=== PATIENT | female | born 1980 | race Caucasian/White ===

== ENCOUNTER 2020-02-06 17:11 | Emergency (ER) | payer OTHER, SELFPAY ==
--- NOTE | ~2020-02-06 | CT_ITS ---
EXAMINATION: CT abdomen pelvis w con INDICATION: Lower abdominal and pelvic pain TECHNIQUE: Computed tomographic images of the abdomen and pelvis were obtained after the administrati on of 100 cc of Omnipaque 350 intravenous contrast. The dose-length product (DLP) was 511.11 mGy-cm. Automated exposure control and iterative reconstruction technique were employed. COMPARISON: 07/03/2013 FINDINGS: The lung bases are clear. The heart size is normal. There is a small sliding hiatal hernia. The gallbladder is surgically absent. The liver, spleen, pancreas, and adrenal glands are normal. Th e left kidney is unremarkable. Nonobstructing stones of the right kidney measure up to 3 mm. No stone s are present in the ureters or bladder. There is no hydronephrosis or hydroureter. A displaced left tubal ligation clip is again noted. No pathologically enlarged abdominal or pelvic lymph nodes are id entified. There is no free intraperitoneal gas or evidence of bowel obstruction. The appendix is norm al. A small volume of free fluid in the pelvis is likely physiologic. A moderate volume of colonic st ool is present. There is mild lumbar spondylosis. IMPRESSION: 1. No CT correlate for the patient's symptoms. 2. Nonobstructing right nephrolithiasis. 3. Displaced left tubal ligation clip. Reviewed, dictated and finalized at location A.
[2020-02-06 17:20] VITALS: BP 124/77; PULSE 96; RESP 16; TEMP 36.6; O2SAT 100
[2020-02-06 17:59] LABS: Add Urine Microscopic? YES; Appearance Urine Clear (Clear); Bilirubin Urine Negative (Negative); Blood Urine 1+ (Negative); Color Urine Straw (Yellow); Glucose Urine UA Negative (Negative); Ketones Urine Negative (Negative); Leukocyte Esterase Ur Trace LEU/UL (Negative); Mucus Urine Rare /lpf; Nitrate Urine Negative (Negative); Protein Urine Negative (Negative); RBC Urine 0-2 /hpf (0-2); Squamous Epithelial Cell Urine Many /hpf (Few); Urobilinogen Urine Negative mg/dL (<2.0); WBC Urine 0-3 /hpf
[2020-02-06 18:03] LABS: Specific Grav Ur 1.003 (1.001-1.035)
--- NOTE | 2020-02-06 18:05 | ED.ABDPAIN ---
HPI - Abdominal Pain General Chief Complaint: Urogenital-Female Stated Complaint: pelvic pain Time Seen by Provider: 02/06/20 17:51 Source: patient and family Mode of arrival: ambulatory Limitations: no limitations History of Present Illness HPI narrative: 39 years old white female presents with lower abdominal pressure feeling and urine frequency and hurts when she pees started 2-hour prior to arrival to the emergency room. Patient denies any fever, chills, nausea, vomiting, blood in the urine. Last menstrual. 2 weeks ago, history of cholecystectomy and the fallopian tube ligation. Patient reports that the pain radiates to her rectum Related Data Allergies Allergy/AdvReac Type Severity Reaction Status Date / Time No Known Allergies Allergy Verified 10/18/17 19:48 Review of Systems Review of Systems: Narrative: CONSTITUTIONAL: Denies fever, chills, or sweats. EYES: Denies visual changes, redness, or discharge. ENT: Denies rhinorrhea, congestion, sore throat, or otalgia. CARDIOVASCULAR: Denies chest pain, palpitations, or edema. RESPIRATORY: Denies cough or dyspnea. GASTROINTESTINAL: Denies abdominal pain, nausea, vomiting, or diarrhea. GENITOURINARY: Denies dysuria or hematuria. SKIN: Denies rash or itching. MUSCULOSKELETAL: Denies back pain, joint pain, or myalgia. NEUROLOGIC: Denies headache, numbness, or weakness. PSYCHIATRIC: Denies anxiety or depression. [facility] Social History Social History (Updated 02/06/20 @ 18:07 by Marcie Morrow MD) Smoking status: Current every day smoker Alcohol intake: current Exam Narrative: Exam Narrative: General appearance: Well-developed, well-nourished Skin: Normal color Head: Normocephalic, nontraumatic Eyes: Clear conjunctiva ENT: Oropharynx normal, ears normal, nose normal Neck: Supple, nontender Chest and respiratory: Airway patent, no respiratory distress, no accessory muscle use Heart: Regular rate/rhythm Abdomen: Soft, nontender, no organomegaly, quiet bowel sounds Vascular: Normal peripheral pulses, normal capillary refill. Musculoskeletal: Normal range of motion, nontender back Neurologic: Alert and oriented ?3, VENDING MANAGER is normal as tested, no gross motor deficit Course Course Emergency Course: Stable Vital Signs Vital signs: Vital Signs Temperature 36.6 C 02/06/20 17:20 Pulse Rate 96 02/06/20 17:20 Respiratory Rate 16 02/06/20 17:20 Blood Pressure 124/77 02/06/20 17:20 Pulse Oximetry 100 02/06/20 17:20 Temperature 36.6 C 02/06/20 17:20 Pulse Rate 96 02/06/20 17:20 Respiratory Rate 16 02/06/20 17:20 Blood Pressure 124/77 02/06/20 17:20 Pulse Oximetry 100 02/06/20 17:20 MDM - Abdominal Pain MDM Narrative Medical decision making narrative: Suprapubic pressure type pain with frequency and pain during urination. UTI is my concern UA ordered. Further plan to follow Blood test, urine analysis, CT abdomen and pelvis showed no significant abnormality to justify patient discomfort. Patient will be discharged on anti-inflammatory medication follow-up with her INTERVENTIONAL NEURORADIOLOGIST for further evaluation. Lab Data Result diagrams: 02/06/20 19:11 02/06/20 19:11 Labs: Lab Results 02/06/20 02/06/20 02/06/20 Range/Units 17:45 19:11 19:11 WBC 11.5 H (4.5-10.0) K/mm3 RBC 3.80 L (4.2-5.4) M/mm3 Hgb 12.2 (12.0-15.0) g/dL Hct 35.9 L (37.0-47.0) % MCV 94.5 (80-100) fl MCH 32.1 (26-34) pg MCHC 34.0 (32-36) g/dl RDW 12.5 (11.5-14.5) % Plt Count 276 (150-375) k/mm3 MPV 9.9 (7.4-10.4) fl Immature Gran % (Auto) 0.3 (0-0.5) % Neut % (Auto) 63.3 (45.5-73.1) % Lymph % (Auto) 27.4 (18.
[2020-02-06 19:21] LABS: Basophils Percent Auto 0.3 % (0.2-1.2); Eosinophils Absolute Auto 0.2 K/mm3 (0-0.3); Eosinophils Percent Auto 1.7 % (0-4.4); Hematocrit 35.9 % (37.0-47.0); Hemoglobin 12.2 g/dL (12.0-15.0); Immature Granulocyte Absolute 0.03 K/mm3 (0.00-0.031); Immature Granulocyte Percent A 0.3 % (0-0.5); Lymphocytes Absolute Auto 3.14 K/mm3 (0.9-3.2); Lymphocytes Percent Auto 27.4 % (18.3-44.2); Mean Corpuscular Hemoglobin 32.1 pg (26-34); Mean Corpuscular Volume 94.5 fl (80-100); Mean Platelet Volume 9.9 fl (7.4-10.4); Monocytes Absolute Auto 0.8 K/mm3 (0.1-0.6); Neutrophils Absolute Auto 7.3 K/mm3 (1.3-6.7); Neutrophils Percent Auto 63.3 % (45.5-73.1); Nucleated Red Blood Cells Perc 0.2 % (0.0-0.2); Platelet Count Result 276 k/mm3 (150-375); Red Cell Distribution Width 12.5 % (11.5-14.5); White Blood Count 11.5 K/mm3 (4.5-10.0)
[2020-02-06 19:34] LABS: Alanine Aminotransferase 15 U/L (4-35); Albumin Level 4.4 g/dL (3.5-5.1); Alkaline Phosphatase 45 U/L (38-126); Anion Gap 6 mmol/L (8-16); Aspartate Amino Transferase 19 U/L (14-36); Bilirubin,Total 0.2 mg/dL (0.2-1.3); Blood Urea Nitrogen 8 mg/dL (7-17); Calcium 9.2 mg/dL (8.4-10.2); Carbon Dioxide 28 mmol/L (22-30); Chloride 103 mmol/L (98-107); Estimated Glomerular Filt Rate > 60; Glucose 91 mg/dL (65-105); Lipase 80 U/L (23-300); Potassium 3.9 mmol/L (3.4-5.0); Sodium 137 mmol/L (137-145)
[2020-02-06] MEDS: DICYCLOMINE HCL 10 MG CAPSULE 20 MG PO (21:00)
[2020-02-06 21:04] VITALS: BP 153/94; PULSE 78; RESP 16; TEMP 36.8; O2SAT 100
== END 2020-02-06 21:11 | disposition home or self-care (01) ==
PROVIDERS: Emergency Provider Emergency Medicine; PCP Family Medicine
DX: R10.30 Lower abdominal pain, unspecified (principal)
CPT/HCPCS: 36415; 74177; 80053; 81001; 81025; 83690; 85025; 99284; A9270; Q9967

== ENCOUNTER 2020-02-12 01:29 | Outpatient (CLI) | payer OTHER, SELFPAY ==
[2020-02-12 19:24] LABS: SARS-CoV-2 RNA PCR Negative
== END 2020-02-12 01:30 | disposition home or self-care (01) ==
PROVIDERS: PCP Family Medicine; Visit Provider Obstetrics & Gynecology
DX: Z01.812 Encounter for preprocedural laboratory examination (principal); Z20.828 Contact with and (suspected) exposure to other viral communicable diseases
CPT/HCPCS: 87635; C9803; U0003

== ENCOUNTER 2020-02-13 02:17 | Day surgery (SDC) | payer OTHER, SELFPAY ==
[2020-02-12 13:28] VITALS: BMI 29.1
[2020-02-13] VITALS (9 sets, daily range): BP systolic 94–118; BP diastolic 57–74; PULSE 52–91; RESP 12–18; TEMP 36.4–36.6; O2SAT 95–100
[2020-02-13] MEDS: LACTATED RINGERS 1,000 ML 30 ML IV CONT ×2 (11:15→15:06)
--- NOTE | 2020-02-13 11:19 | ECG_ITS ---
Measurements Intervals [place] Rate: 70 P: 58 NM: 166 QRS: 43 QRSD: 95 T: 50 QT: 389 QTc: 421 Interpretive Statements SINUS RHYTHM NORMAL ECG Electronically Signed On 02-13-2020 12:25:37 CDT by Mikal Chopra D.O.
[2020-02-13] MEDS: ACETAMINOPHEN 500 MG TABLET 1000 MG PO (11:25)
[2020-02-13] MEDS: KETOROLAC 15 MG/ML VIAL (*BKC) IV PUSH (11:26)
--- NOTE | 2020-02-13 11:57 | WPDANESEPPF ---
Anes - Initial Pre Proc Eval Procedure: Operation Date: 02/13/20 12:45 Proposed Procedures p Diagnostic Laparoscopy - Pushpa Purvis MD Date/Time: 02/13/20 11:57 Surgeon: Pushpa Purvis MD Pre Op Diagnosis: Pelvic and Perineal Pain Patient Data Age: 39 Gender: F Height: 5 ft 4 in Weight: 75 kg Last Vital Signs Temp 97.5 F L 02/13/20 11:34 Pulse 84 02/13/20 11:34 Resp 16 02/13/20 11:34 BP 108/64 02/13/20 11:34 Pulse Ox 100 02/13/20 11:34 Allergies Allergy/AdvReac Type Severity Reaction Status Date / Time No Known Allergies Allergy Verified 02/13/20 10:53 Home Medications Medication Instructions Recorded Confirmed Type phentermine 37.5 mg PO DAILY 02/12/20 02/13/20 History Patient hx anesthesia problems: none Family hx anesthesia problems: none PMFSH Past Medical History Medical History (Updated 02/13/20 @ 11:57 by Jose Garcia MD) Fatty liver 2007 when h/o of meningitis Social History Social History (Updated 02/06/20 @ 18:07 by Marcie Morrow MD) Smoking status: Never smoker Tobacco type: e-cigarettes/vaping Alcohol intake: current Substance use: current Substance use type: does not use and marijuana Living arrangements: with family Gender identity (if verbalized by the patient): Female Sexual Orientation (if Verbalized by the Patient): Straight or Heterosexual Spiritual care concerns: No Anes - Eval Final PreProcedure Day of Procedure 02/13/20 11:57 Patient weight: normal Heart: regular rate and rhythm Lungs: clear to auscultation Airway: Mallampati scale class II Neurological: alert and oriented Last oral intake: >/= 8 hours ASA classification: II Emergent: no Anesthetic plan: proceed Anesthesia type and monitoring: general ETT and standard monitoring Informed Consent: The patient's anesthetic plan and its attendant risks and benefits were discussed with the patient/family/POA. Questions were solicited and answers provided to the satisfaction of the patient/family/POA.
--- NOTE | 2020-02-13 13:03 | WPDHPUPDATE1 ---
History and Physical Update Update Date/Time: 02/13/20 13:03 History and Physical has been reviewed, including an updated exam of the patient. There are NO changes in the patient's condition. Risks, benefits, and alternatives have been discussed and questions answered. Patient agrees to proceed with procedure.
--- NOTE | 2020-02-13 14:36 | P.OP_ITS ---
Procedure Note - Detailed Date of procedure: 02/13/20 Pre-op diagnosis: Pelvic and Perineal Pain Post-op diagnosis: same ( Hemorrhagic corpus luteum, pelvic adhesions) Procedure performed: laparoscopic left ovarian cystectomy, adhesiolysis Description of procedure: The patient was taken the operating room. She was prepped and draped in the dorsal lithotomy position after induction of general anesthesia. A 5 mm left upper quadrant incision was made in the abdominal skin with a scalpel. A 5 mm trocar was inserted the intra-abdominal cavity under direct visualization of the scope. A 5 mm left lower quadrant incision was made with the scalp on the abdominal skin and a 5 mm trocar was inserted the intra- abdominal cavity under direct visualization of the scope. A 5 mm infraumbilical incision was made with scalpel and a 5 mm trocar was inserted into the intra- abdominal cavity under direct visualization of the scope. Blood was found throughout the pelvis. It was evacuated with the suction supervisor securities vault. A hemorrhagic corpus luteum cyst was observed on the left ovary. It was on grooved and cauterized thoroughly. Fragments the corpus luteum cysts removed and sent to pathology. There were some adhesions on the right adnexa. These adhesions were transected. The pelvis was irrigated with copious amounts of normal saline. The pneumoperitoneum was reduced. The trocars were removed. The patient was taken recovery room stable condition. Sponge lap and needle counts were correct x2. Anesthesia: GETA Surgeon: Pushpa Purvis MD Estimated blood loss (mL): 50 Drains: No Packing: No Complications: No immediate complications Condition: stable Disposition: PACU Findings: actively bleeding hemorrhagic corpus luteum cyst on the left ovary, hemoperitoneum in the pelvis, adhesions on the right adnexa.
[2020-02-13] MEDS: fentaNYL CITRATE INJ (*CRX) 100 MCG/2 ML VIAL 25 MCG IV PUSH ×4 (15:02→15:35)
[2020-02-13] MEDS: ONDANSETRON INJ 4 MG/2 ML VIAL IV PUSH (15:57)
--- NOTE | 2020-02-13 16:31 | SUR.PHASEII ---
[id number] xiao office to remind him to order anti-nausea medicine for pt at home. they will give him the message
== END 2020-02-13 17:10 | disposition home or self-care (01) ==
PROVIDERS: PCP Family Medicine; Visit Provider Obstetrics & Gynecology
PROC: (CPT 49320; principal; 2020-02-13 12:45)
DX: R10.2 Pelvic and perineal pain (principal); N83.12 Corpus luteum cyst of left ovary; N73.6 Female pelvic peritoneal adhesions (postinfective); K66.1 Hemoperitoneum; F17.290 Nicotine dependence, other tobacco product, uncomplicated
CPT/HCPCS: 58662; 88305; 93005; A9270; J0330; J1100; J1885; J2250; J2405; J2704; J2710; J3010; J7030; J7120

== ENCOUNTER 2021-01-21 16:45 | Outpatient (CLI) | payer OTHER, SELFPAY ==
--- NOTE | ~2021-01-21 | XR_ITS ---
XR hand RT min 3V 01/21/2021 17:06 INDICATION: Right hand pain for one month PROCEDURE: 3 views right hand COMPARISON: No prior studies for comparison. FINDINGS: Fracture, dislocation or subluxation is not identified. The soft tissues appear within norm al limits. No foreign bodies are identified. IMPRESSION: 1: NO ACUTE BONE OR JOINT ABNORMALITY IDENTIFIED. Reviewed, dictated and finalized at location A.
== END 2021-01-21 16:46 | disposition home or self-care (01) ==
LOC: ANHIMG 16:48
PROVIDERS: PCP Family Medicine; Visit Provider Nurse Practitioner Family
DX: M79.641 Pain in right hand (principal)
CPT/HCPCS: 73130

== ENCOUNTER 2021-03-24 13:25 | Outpatient (CLI) | payer OTHER, SELFPAY ==
--- NOTE | 2021-03-24 | ECHO_ITS ---
Patient Info Name: Asha Guerrero Age: 40 years : 1980 Gender: Female Ht: 64 in Wt: 190 lbs BSA: 2.01 m2 HR: 81 bpm BP: 132 / 90 mmHg Heart Rhythm: Sinus Rhythm Technical Quality: Fair Exam Date: 03/24/2021 2:49 PM Exam Location: [facility] Patient Status: Outpatient Admit Date: 03/24/2021 Staff Ordering Physician: Richie, Kristyn Rojo MD Mechanical Engineering Director: TRELL Attending Provider: Richie, Kristyn Rojo MD Referring Physician: Richie WOLFE; Exam Type: CA echo doppler color flow Study Info Indications R55 - Syncope and collapse Complete two-dimensional, color flow and Doppler transthoracic echocardiogram is performed. Summary 1. Complete two-dimensional, color flow and Doppler transthoracic echocardiogram is performed. 2. Normal left ventricular size and thickness with good systolic function of all segments. EF calculated to be 58% and visually is 60-65%. No segmental wall motion abnormalities. Borderline diastolic function. with elevated filling pressure. 3. Left atrial chamber dimension is mildly enlarged. 4. Normal estimated pulmonary pressure. 5. No significant valve disease. 6. Normal sinus rhythm. Left Ventricle Left ventricular chamber dimension is normal. Left ventricular systolic function is normal, estimated at 60-65%. There is no increased left ventricular wall thickness. Left ventricular septal wall motion is normal. The left ventricular diastolic function is normal. E/e' Empty is mildly elevated. Right Ventricle Right ventricular chamber dimension is normal. Right ventricular systolic function is normal. Left Atria Left atrial chamber dimension is mildly enlarged. Right Atria Right atrial chamber dimension is normal. Aortic Valve The aortic valve is trileaflet. There is no aortic valve sclerosis. There is no aortic valve stenosis. There is no aortic valve regurgitation. Pulmonic Valve The pulmonic valve is normal. There is no pulmonic valve stenosis. There is no pulmonic regurgitation. Mitral Valve The mitral valve has normal leaflets. There is no mitral valve stenosis. There is trace mitral valve regurgitation. Tricuspid Valve The tricuspid valve leaflets are normal. There is no significant tricuspid valve stenosis. There is trace tricuspid valve regurgitation. No pulmonary hypertension, estimated pulmonary arterial systolic pressure is 13 mmHg. Pericardium/Pleural The pericardium appears normal. There is no pericardial effusion. Inferior Vena Cava Normal inferior vena cava with >50% collapse upon inspiration consistent with Empty right atrial pressure, 10 mmHg. Aorta The aortic root size at the sinus of Valsalva is normal. The prox ascending aorta size is normal. Left Ventricular Outflow Tract Name Value Normal LVOT 2D LVOT Diameter 2.1 cm LVOT Doppler LVOT Peak Gradient 7 mmHg LVOT Mean Gradient 3 mmHg LVOT VTI 26 cm LVOT VTI/AV VTI Ratio 0.9 LVOT Stroke Volume
--- NOTE | 2021-03-24 | ECG_ITS ---
Measurements Intervals [place] Rate: 67 P: 66 MS: 158 QRS: 40 QRSD: 85 T: 41 QT: 397 QTc: 421 Interpretive Statements SINUS RHYTHM POSSIBLE LEFT ATRIAL ENLARGEMENT BASELINE WANDER- I, II, AVR, AVL, V3 BORDERLINE ECG Electronically Signed On 03-24-2021 15:08:34 TUNGSTEN TENDER by Mikal Chopra D.O.
== END 2021-03-24 13:26 | disposition home or self-care (01) ==
LOC: ANHCARD 13:25
PROVIDERS: PCP Family Medicine; Visit Provider Family Medicine
DX: R55 Syncope and collapse (principal); R94.31 Abnormal electrocardiogram [ECG] [EKG]
CPT/HCPCS: 93005; 93306

== ENCOUNTER 2021-12-17 10:52 | Emergency (ER) | payer OTHER, SELFPAY ==
[2021-12-17 11:00] VITALS: BP 132/70; PULSE 77; RESP 16; TEMP 36; O2SAT 100
--- NOTE | 2021-12-17 11:17 | ED.URI ---
HPI - URI/Sore Throat General Chief Complaint: Upper Respiratory Infection Stated Complaint: Cough,Sore Throat,Headache,Congestion Time Seen by Provider: 12/17/21 11:17 Source: patient Mode of arrival: ambulatory Limitations: no limitations History of Present Illness HPI Narrative: 41 yo F presents with c/o cough, nasal congestion, drainage, fatigue, headache for 5 days. States yesterday while vacuuming she needed to sit down due to SOB. Denies fever. Taking tylenol but no other OTC meds to treat symptoms. neg for covid yesterday. He was given zpak for similar symptoms. Denies N/V/d. All systems reviewed and negative except as noted above. Related Data Allergies Allergy/AdvReac Type Severity Reaction Status Date / Time No Known Allergies Allergy Verified 12/17/21 11:01 Review of Systems Review of Systems: CONSTITUTIONAL: Denies fever, chills, or sweats. Reports fatigue. EYES: Denies visual changes, redness, or discharge. ENT: Reports rhinorrhea, congestion, sore throat. Denies otalgia. CARDIOVASCULAR: Denies chest pain, palpitations, or edema. RESPIRATORY: Reports cough. Denies dyspnea. GASTROINTESTINAL: Denies abdominal pain, nausea, vomiting, or diarrhea. GENITOURINARY: Denies dysuria or hematuria. SKIN: Denies rash or itching. MUSCULOSKELETAL: Denies back pain, joint pain, or myalgia. NEUROLOGIC: Reports headache. Denies numbness, or weakness. PSYCHIATRIC: Denies anxiety or depression. All other systems reviewed are negative, except as documented in HPI. COUNTS INCLUDE 234 BEDS AT THE [facility] Past Medical History Medical History (Updated 12/17/21 @ 11:42 by Jayne Samaniego NP) Fatty liver 2007 when h/o of meningitis Social History Social History (Updated 02/06/20 @ 18:07 by Marcie Morrow MD) Smoking status: Never smoker Tobacco type: e-cigarettes/vaping Alcohol intake: current Substance use: current Substance use type: does not use and marijuana Gender identity (if verbalized by the patient): Female Sexual Orientation (if Verbalized by the Patient): Straight or Heterosexual Spiritual care concerns: No Comments At time of signature, agree with nursing past medical, surgical, social and family history. There is no relevant family history pertinent to the presenting complaint. Exam Narrative: GENERAL: This is a well-nourished, well-developed patient, in no apparent distress. HEAD: normocephalic, atraumatic. EYES: PERRL. Sclera clear/white. Vision is grossly intact. EARS: External ears normal, auditory canals clear and without drainage, TMs normal without perforation. Hearing grossly intact. NOSE: External nose normal with clear nasal drainage, erythema to nares. THROAT: Mucous membranes moist, no erythema to posterior pharynx. Clear postnasal drainage noted. NECK: Neck supple, non-tender without lymphadenopathy, masses or thyromegaly. CARDIOVASCULAR: Regular rate and rhythm without murmurs, gallops, or rubs. RESPIRATORY: Clear to auscultation. Breath sounds equal bilaterally. No wheezes, rales, or rhonchi. SKIN: warm, Dry, intact with no suspicious lesions or rash, good texture and turgor. NEURO: awake, alert, and oriented to person, place and time. There were no obvious focal neurologic abnormalities. EXTREMITIES: No joint tenderness, effusion, or edema noted. Course Course Level of Care: Express Care Visit Vital Signs Vital signs: Vital Signs Temperature 36.0 C L 12/17/21 11:00 Pulse Rate 77 12/17/21 11:00 Respiratory Rate 16 12/17/21 11:00 Blood Pressure 132/70 12/17/21 11:00 Pulse Oximetry 100 12/17/21 11:00 Oxygen Delivery Room Air 12/17/21 11:00 Temperature 36.0 C L 12/17/21 11:00 Pulse Rate 77 12/17/21 11:00 Respiratory Rate 16 12/17/21 11:00 Blood Pressure 132/70 12/17/21 11:00 Pulse Oximetry 100 12/17/21 11:00 Oxygen Delivery Room Air 12/17/21 11:00 Reviewed MDM - URI/Sore Throat MDM Narrative Medical decision making narrative: Patient i
== END 2021-12-17 11:50 | disposition home or self-care (01) ==
PROVIDERS: Emergency Provider Nurse Practitioner Family; PCP Family Medicine
DX: J06.9 Acute upper respiratory infection, unspecified (principal); F17.290 Nicotine dependence, other tobacco product, uncomplicated
CPT/HCPCS: 87081; 87880; 99213; G0463

== ENCOUNTER 2022-08-26 13:51 | Outpatient (CLI) | payer BC, SELFPAY ==
--- NOTE | ~2022-08-26 | MMUS_ITS ---
EXAMINATION: MM diagnostic [place] RT w yumiko, US breast RT complete HISTORY: Lateral right breast pain TECHNIQUE: Digital ML, MLO and CC Tomosynthesis images of the right breast were performed and synthet ic 2-D images were generated. CAD analysis was submitted and interpreted. High resolution complete ri ght breast ultrasound examination including all 4 quadrants and subareolar area was performed. COMPARISON: None BREAST PARENCHYMAL COMPOSITION: The breasts are almost entirely fatty. FINDINGS: MAMMOGRAPHIC FINDINGS: No suspicious mass or architectural distortion, malignant calcification, skin thickening or retractio n is detected. ULTRASOUND: No suspicious mass or shadowing, cyst or other significant sonographic finding of the right breast is detected. IMPRESSION: 1. No mammographic or sonographic evidence of right breast malignancy 2. Routine annual mammographic screening is recommended BI-RADS Category 1: Negative Reviewed, dictated and finalized at location A. IMPRESSION: 1. No mammographic or sonographic evidence of right breast malignancy 2. Routine annual mammographic screening is recommended BI-RADS Category 1: Negative
== END 2022-08-26 13:52 | disposition home or self-care (01) ==
PROVIDERS: PCP Family Medicine; Visit Provider Nurse Practitioner Obstetrics & Gynecology
DX: N64.4 Mastodynia (principal)
CPT/HCPCS: 76641; 77061; 77065; G0279

== ENCOUNTER 2023-02-01 16:47 | Outpatient (CLI) | payer BC, SELFPAY ==
[2023-02-01 17:44] LABS: Beta HCG Quantitative < 2.39 mIU/ML
== END 2023-02-01 16:48 | disposition home or self-care (01) ==
LOC: ANHLAB 16:49
PROVIDERS: PCP Family Medicine; Visit Provider Advanced Practice Midwife
DX: N91.2 Amenorrhea, unspecified (principal)
CPT/HCPCS: 36415; 84702

== ENCOUNTER 2023-02-16 15:01 | Emergency (ER) | payer BC, SELFPAY ==
--- NOTE | ~2023-02-16 | XR_ITS ---
XR chest 2V DATE: 02/16/2023 15:33 INDICATION: Mid chest pain since 1300 hours today TECHNIQUE: 2 views COMPARISON: 07/21/2017 two-view chest FINDINGS: Normal heart size. No hilar or mediastinal enlargement. No pulmonary infiltrate or consolid ation, pleural effusion or pulmonary vascular congestion or pneumothorax is detected. Surgical clips, right upper quadrant, likely due to cholecystectomy. IMPRESSION: No active cardiopulmonary disease Reviewed, dictated and finalized at location B.
--- NOTE | ~2023-02-16 | CT_ITS ---
EXAMINATION: CTA chest PE protocol DATE: 02/16/2023 20:07 INDICATION: PE TECHNIQUE: Computed tomography angiography (CTA) of the chest was performed with 100 mL Omnipaque-350 intravenous contrast timed to evaluate the pulmonary arteries. Coronal maximum intensity projection 3D-reconstructions were created by the technologist. The dose-length product (DLP) was 799.20 mGy-cm. Automated exposure control and iterative reconstruction technique were employed. COMPARISON: X-ray chest, same date. FINDINGS: Lung parenchyma and airways: Clear. Pleura: Unremarkable. Thoracic inlet, axillae and chest wall: Unremarkable. Thoracic aorta: Normal. Mediastinum: Normal. Heart and pericardium: Normal. Coronary artery calcifications: Absent. Upper abdomen: No significant finding. Bones: No acute osseous finding. Pulmonary arteries: Study quality: Adequate. No pulmonary emboli detected. IMPRESSION: No CT evidence of acute pulmonary embolus. No acute intrathoracic process detected. Reviewed, dictated and finalized at location K. IMPRESSION: No CT evidence of acute pulmonary embolus. No acute intrathoracic process detec barron.
--- NOTE | 2023-02-16 15:02 | ECG_ITS ---
Measurements Intervals [place] Rate: 92 P: 59 NE: 161 QRS: -10 QRSD: 95 T: 54 QT: 361 QTc: 449 Interpretive Statements SINUS RHYTHM COMPARED TO ECG 03/24/2021 14:58:56 NO SIGNIFICANT CHANGES Electronically Signed On 02-16-2023 19:18:00 CDT by Meron Hanson M.D.
[2023-02-16 15:10] VITALS: BP 152/85; PULSE 92; RESP 18; TEMP 37; O2SAT 99
[2023-02-16 15:25] LABS: Basophils Absolute Auto 0.1 K/mm3 (0.0-0.1); Basophils Percent Auto 0.5 % (0.2-1.2); Eosinophils Absolute Auto 0.2 K/mm3 (0-0.3); Eosinophils Percent Auto 1.9 % (0-4.4); Hematocrit 41.6 % (37.0-47.0); Hemoglobin 13.9 g/dL (12.0-15.0); Immature Granulocyte Absolute 0.04 K/mm3 (0.00-0.031); Immature Granulocyte Percent A 0.4 % (0-0.5); Lymphocytes Absolute Auto 2.14 K/mm3 (0.9-3.2); Lymphocytes Percent Auto 18.9 % (18.3-44.2); Mean Corpuscular HGB Conc 33.4 g/dl (32-36); Mean Corpuscular Hemoglobin 32.1 pg (26-34); Mean Corpuscular Volume 96.1 fl (80-100); Monocytes Absolute Auto 0.9 K/mm3 (0.1-0.6); Monocytes Percent Auto 8.1 % (2.6-8.5); Neutrophils Absolute Auto 7.9 K/mm3 (1.3-6.7); Neutrophils Percent Auto 70.2 % (45.5-73.1); Platelet Count Result 315 k/mm3 (150-375); Red Blood Count 4.33 M/mm3 (4.2-5.4); Red Cell Distribution Width 12.7 % (11.5-14.5); White Blood Count 11.3 K/mm3 (4.5-10.0)
[2023-02-16 15:36] LABS: Alanine Aminotransferase 43 U/L (6-35); Albumin Level 4.6 g/dL (3.5-5.1); Alkaline Phosphatase 61 U/L (38-126); Anion Gap 9 mmol/L (8-16); Aspartate Amino Transferase 33 U/L (14-36); Bilirubin,Total 0.4 mg/dL (0.2-1.3); Blood Urea Nitrogen 10 mg/dL (7-17); Carbon Dioxide 24 mmol/L (22-30); Chloride 103 mmol/L (98-107); Estimated CRCL calculation 103 ml/min; Estimated Glomerular Filt Rate > 60; Glucose 108 mg/dL (65-110); Lipase 248 U/L (23-300); Potassium 3.7 mmol/L (3.4-5.0); Sodium 136 mmol/L (137-145)
[2023-02-16 15:37] LABS: INR 0.8; Prothrombin Time 11.7 Seconds (11.1-14.7)
[2023-02-16 15:38] LABS: Partial Thromboplastin Time 27.3 SECONDS (22.3-36.8)
[2023-02-16 15:48] LABS: Troponin I < 0.012 ng/mL (0.000-0.034)
[2023-02-16] MEDS: ASPIRIN 81 MG CHEWABLE TABLET 324 MG PO (17:48)
--- NOTE | 2023-02-16 17:53 | ED.CHESTPAIN ---
HPI - Chest Pain General Chief Complaint: Chest Pain Stated Complaint: CP Time Seen by Provider: 02/16/23 17:48 History of Present Illness HPI narrative: Patient is of 42-year-old female with history of hypertension and current smoker here with chest pain. She states that chest pain began around 1:30 this afternoon while she was at rest at work. She notes that the pain is just left of the sternum and is nonradiating. Pain is sharp in nature and worse with deep breaths. She notes that she has had some palpitations and feeling flushed when the pain is present. Currently rates the pain 3/10. She has not done anything for the pain. She denies similar history of chest pain. Denies any cardiac history. No history of PE or DVT. No recent travel. No recent surgeries. No cough, congestion, fever, chills. No chest wall trauma. She has never seen a funnel setter in the past. Does have a family history of a father with some cardiac disease at an unknown age. Related Data Home Medications Medication Instructions Recorded Confirmed phentermine 37.5 mg tablet 37.5 mg PO DAILY 12/17/21 12/17/21 Allergies Allergy/AdvReac Type Severity Reaction Status Date / Time No Known Allergies Allergy Verified 02/16/23 17:36 Review of Systems Review of Systems: All systems reviewed & are unremarkable except as noted in HPI and below PMFSH Past Medical History Medical History (Updated 02/16/23 @ 20:39 by Zaida Rosa MD) Fatty liver 2007 when h/o of meningitis Social History Social History (Updated 02/06/20 @ 18:07 by Marcie Morrow MD) Smoking status: Never smoker Tobacco type: e-cigarettes/vaping Alcohol intake: current Substance use: current Substance use type: does not use and marijuana Living arrangements: with family Gender identity (if verbalized by the patient): Female Sexual Orientation (if Verbalized by the Patient): Straight or Heterosexual Spiritual care concerns: No Exam Narrative: GENERAL: Well-appearing, well-nourished, and in no acute distress. HEAD: Normocephalic, atraumatic. EYES: PERRLA and EOMI. ENT: Nares clear. Mucous membranes moist. NECK: Supple. CHEST: Clear to auscultation. No respiratory distress. HEART: Regular rate and rhythm. Normal peripheral pulses. ABDOMEN: Soft, nontender, nondistended. EXTREMITIES: Normal range of motion. No lower extremity edema. No calf tenderness. SKIN: Warm, dry, no rash. NEURO: No focal deficits. Alert and oriented x3. PSYCH: Normal mood and affect. Course Course Emergency Course: Chart review performed. Patient here with chest pain since 1330, worse with inspiration per nursing note. Triage vitals grossly normal. Triage lab work shows WBC of 11.3, normal CMP, negative troponin. CXR negative. Patient seen evaluated, in no acute distress. Will do chest pain workup. Low risk PE however she is a smoker, will do D-dimer. Will initially do DuoNeb given active smoker and pleuritic nature of pain. D-dimer positive, will do CTA-PE study. Repeat troponin negative. HEART score of 1. Pending PE study. CTA negative. The results of pertinent diagnostic studies and exam findings were discussed. The patient?s provisional diagnosis and plan of care were discussed with the patient and present family. Discussed HEART score. The patient and/or present family expressed understanding of the diagnosis and plan. The nurse was instructed to provide written instructions and appropriate follow-up information. The patient understands their need and responsibility to obtain additional follow-up as instructed. The risks of medications administered and prescribed were discussed with the patient and family present. Vital Signs Vital signs: Vital Signs Temperature 98.6 F 02/16/23 15:10 Pulse Rate 92 02/16/23 15:10 Respiratory Rate 18 02/16/23 15:10 Blood Pressure 152/85 H 02/16/23 15:10 Pulse Oximetry 99 02/16/23 15:10 Oxygen Delivery Ronel
[2023-02-16 17:58] VITALS: BP 142/88; PULSE 88; RESP 18; O2SAT 100
[2023-02-16] MEDS: IPRATROPIUM BR 0.02% INH SOLN 0.5 MG/2.5 ML VIAL INHALATION (18:12)
[2023-02-16] MEDS: ALBUTEROL SULFATE NEB 2.5 MG/3 ML INH INHALATION (18:12)
[2023-02-16 18:13] VITALS: PULSE 87; RESP 22
[2023-02-16 18:22] LABS: D Dimer 0.55 ug/mL (<0.48)
[2023-02-16 18:23] VITALS: PULSE 97; RESP 16
[2023-02-16 18:23] LABS: Troponin I < 0.012 ng/mL (0.000-0.034)
[2023-02-16] MEDS: ONDANSETRON INJ 4 MG/2 ML VIAL (18:41)
[2023-02-16] MEDS: KETOROLAC 15 MG/ML VIAL (*BKC) IV PUSH (18:41)
[2023-02-16 19:43] VITALS: PULSE 84; RESP 20; O2SAT 96
[2023-02-16 20:48] VITALS: BP 136/88; PULSE 83; RESP 18; O2SAT 99
== END 2023-02-16 20:49 | disposition home or self-care (01) ==
PROVIDERS: Preventive Medicine Aerospace Medicine; Emergency Provider Student in an Organized Health Care Education/Training Program; PCP Family Medicine
DX: R07.89 Other chest pain (principal); I10 Essential (primary) hypertension; F17.290 Nicotine dependence, other tobacco product, uncomplicated
CPT/HCPCS: 36415; 71046; 71275; 80053; 83690; 84484; 85025; 85380; 85610; 85730; 93005; 94640; 96374; 96375; 99284; A9270; J1885; J2405; Q9967

== ENCOUNTER 2023-03-10 09:22 | Outpatient (CLI) | payer BC, SELFPAY | END 2023-03-10 09:23 | disposition home or self-care (01) | LOC: ANHSURGERY 09:25 | PROVIDERS: PCP Family Medicine; Visit Provider Obstetrics & Gynecology | DX: Z01.812 Encounter for preprocedural laboratory examination (principal); R92.0 Mammographic microcalcification found on diagnostic imaging of breast | CPT/HCPCS: 36415; 86850; 86900; 86901 ==

== ENCOUNTER 2023-03-10 09:52 | Outpatient (CLI) | payer BC, SELFPAY ==
[2023-03-10 10:37] LABS: Anion Gap 7 mmol/L (8-16); Blood Urea Nitrogen 8 mg/dL (7-17); Calcium 8.8 mg/dL (8.4-10.2); Carbon Dioxide 27 mmol/L (22-30); Chloride 104 mmol/L (98-107); Estimated Glomerular Filt Rate > 60; Glucose 103 mg/dL (65-110); Sodium 138 mmol/L (137-145)
== END 2023-03-10 09:53 | disposition home or self-care (01) ==
LOC: ANHLAB 09:54
PROVIDERS: PCP Family Medicine; Visit Provider Family Medicine
DX: I10 Essential (primary) hypertension (principal)
CPT/HCPCS: 36415; 80048

== ENCOUNTER 2023-03-16 01:42 | Day surgery (SDC) | payer BC, SELFPAY ==
[2023-03-09 09:14] VITALS: BMI 39.9
--- NOTE | 2023-03-09 09:21 | PC.NURSE ---
Report to the Outpatient Waiting Room, entrance under the green pavilion located off [facility], at time 8:00 on date 03/16/23. Planned Procedure Time: 10:00. Time changes happen often and if your time is changed the preop area will call you the afternoon before. - You and your visitor will be asked to self-screen and do not enter if you have any COVID symptoms. - A mask is optional within the hospital at this time. Patients may have clear liquids (water, carbonated beverages, clear teas, apple juice) until 3 hours prior to surgery with a maximum of 20 ounces. - No food from midnight until time of surgery Take the following medications with a SIP of water the morning of surgery: PAIN PILL DO NOT STOP ANY OF YOUR OTHER PRESCRIPTION MEDICATIONS PRIOR TO SURGERY ?EXCEPT THE FOLLOWING Medications to discontinue per physician: N/A Date to take last dose: N/A Please no make-up, nail botswan[place], hairspray, perfume, deodorant, or body powder the day of surgery. No jewelry (including any body piercings) or valuables the day of surgery, leave them at home. Please take a shower or bath the night before, or the morning of, surgery with an antibacterial soap. Wear comfortable, loose fitting clothing. - Jewelry must be removed prior to entering the operating room. Rings and piercings that are not removed may be cut off. - The hospital will not accept responsibility for valuables. - Please leave all valuables, including medications, at home the day of surgery. If you are going home after surgery, a licensed milk wagon driver must drive you home. - NO public transportation without another adult if you receive anesthesia. - We recommend that an adult stay with you for 24 hours following discharge. - We also recommend that you do not drive, make important decision, drink alcoholic beverages, or take any drugs that were not prescribed by your health care provider for at least 24 hours after your discharge time. Follow any additional instructions given to you from your surgeon. If you or anyone in your household have experienced Covid symptoms in the past week, please notify your surgeon or the nurse liaison at the phone number below for possible testing. Telephone instructions given to PT - LYDIA TIM and asked if any additional questions and then verbalized understanding. Patient advised to call surgeon office or pre surgery nurse liaison [phone] if any additional questions.
[2023-03-16] VITALS (10 sets, daily range): BP systolic 103–123; BP diastolic 59–79; PULSE 75–93; RESP 14–18; TEMP 36.2–37.3; O2SAT 92–100; BMI 39.6
--- NOTE | 2023-03-16 08:33 | WPDANESEPPF ---
Anes - Initial Pre Proc Eval Procedure: Operation Date: 03/16/23 10:00 Proposed Procedures p Total Laparoscopic Hysterectomy with Bilateral Salpingo-Oophorectomy - Pushpa Purvis MD Date/Time: 03/16/23 08:33 Surgeon: Pushpa Purvis MD Pre Op Diagnosis: menorrhagia Patient Data Age: 42 Gender: F Height: 1.6 m Weight: 102.1 kg Allergies Allergy/AdvReac Type Severity Reaction Status Date / Time hydrochlorothiazide Allergy Chest Pain Verified 03/09/23 09:13 losartan Allergy Chest Pain Verified 03/09/23 09:13 codeine AdvReac Vomiting Verified 03/09/23 09:11 hydrocodone AdvReac Vomiting Verified 03/09/23 09:11 tramadol AdvReac Vomiting Verified 03/09/23 09:11 Home Medications Medication Instructions Recorded Confirmed Type amlodipine 10 mg tablet 10 mg PO QNOON 03/09/23 03/09/23 History hydrocodone 5 mg-acetaminophen 325 1 tablet PO Q6H PRN Pain 03/09/23 03/09/23 History mg tablet ondansetron 8 mg disintegrating 8 mg PO BID PRN Nausea 03/09/23 03/09/23 History tablet Patient hx anesthesia problems: none Family hx anesthesia problems: none Results Review: All pre-operative results and documents have been reviewed as part of the pre-operative evaluation. [facility] Past Medical History Medical History (Updated 02/17/23 @ 00:00 by Julia Sharma) Fatty liver 2007 when h/o of meningitis Social History Social History (Updated 02/06/20 @ 18:07 by Marcie Morrow MD) Smoking packs per day: 1 Smoking cigarettes per day: 20.0 Years smoked: 25 Smoking pack-years: 25.00 Smoking status: Current every day smoker Tobacco type: cigarettes Alcohol intake: current Drinks per week: 2 Substance use: current Substance use type: marijuana Living arrangements: with family Gender identity (if verbalized by the patient): Female Sexual Orientation (if Verbalized by the Patient): Straight or Heterosexual Spiritual care concerns: No Anes - Eval Final PreProcedure Day of Procedure 03/16/23 08:33 Patient weight: obese Heart: regular rate and rhythm Lungs: clear to auscultation Airway: Mallampati scale class II Neurological: alert and oriented Last oral intake: >/= 8 hours ASA classification: III Emergent: no Anesthetic plan: proceed Anesthesia type and monitoring: general ETT and standard monitoring Results Review: All pre-operative results and documents have been reviewed as part of the pre-operative evaluation. Informed Consent: The patient's anesthetic plan and its attendant risks and benefits were discussed with the patient/family/POA. Questions were solicited and answers provided to the satisfaction of the patient/family/POA.
--- NOTE | 2023-03-16 09:24 | WPDHPUPDATE1 ---
History and Physical Update Update Date/Time: 03/16/23 09:24 History and Physical has been reviewed, including an updated exam of the patient. There are NO changes in the patient's condition. Risks, benefits, and alternatives have been discussed and questions answered. Patient agrees to proceed with procedure.
[2023-03-16] MEDS: LACTATED RINGERS 1,000 ML 30 ML IV CONT ×2 (09:40→11:34)
[2023-03-16] MEDS: ACETAMINOPHEN 500 MG TABLET 1000 MG PO (09:45)
[2023-03-16] MEDS: KETOROLAC 15 MG/ML VIAL (*BKC) IV PUSH (09:46)
[2023-03-16] MEDS: SCOPOLAMINE 1.5 MG PATCH TRANSDERM (09:47)
[2023-03-16] MEDS: ceFAZolin 2 GM/D5W 50 ML 2 GM/50 ML BAG IVPB (10:01)
[2023-03-16] MEDS: ceFAZolin SODIUM 1 GM VIAL (10:41)
--- NOTE | 2023-03-16 11:31 | W.PM.PROC2 ---
Procedure Note - Detailed Date of Procedure 03/16/23 Pre-op Diagnosis menorrhagia Post-op Diagnosis Same Procedure Performed Total laparoscopic hysterectomy and bilateral salpingo-oophorectomy. Surgeon Pushpa Purvis MD Anesthesia General Indications Menorrhagia Findings enlarged uterus, mildly enlarged, ligated tubes with reyna, otherwise normal tubes and ovaries. Description of Procedure This patient was taken to the operating room. She was prepped and draped in the dorsal lithotomy position after induction of general anesthesia. The uterine manipulator and Ambreen cup were placed. This was done with a speculum and tenaculum. The speculum was placed. The cervix was grasped with a tenaculum. The stay sutures were placed at 3 and 9:00 a.m.. The stay sutures of 0 Vicryl were brought through the appropriately sized Ambreen cup. The tip of the TOM manipulator was placed in the intrauterine cavity. The cup was slid into place around the cervix and into the fornices. It was locked into place. The sutures were then wrapped around the handle and tied under tension. A 5 mm skin incision was made in the left upper quadrant the abdomen. A 5 mm trocar was inserted into the intrauterine cavity under direct visualization of the scope. Pneumoperitoneum was achieved. A left lower quadrant 11 mm incision was made with scalpel. An 11 mm trocar was inserted into the anterior abdominal cavity under direct visualization the scope. A 5 mm infraumbilical incision was made with a scalpel and a 5 mm trocar was inserted the intra-abdominal cavity under direct visualization of the scope. Bilateral ureteral lysis was performed. This was done from the pelvic brim down to the uterine artery. This was done with careful dissection using sharp and blunt dissection. The infundibulopelvic ligaments were isolated after identification of the ureters bilaterally. These infundibulopelvic ligaments were cauterized and transected with LigaSure cautery. The para ovarian tissue was cauterized and transected with LigaSure cautery bilaterally. Moving around the ovary into the broad ligament the tissue was cauterized transected with LigaSure cautery. The round ligaments were cauterized transected with LigaSure cautery this was all done in a bilateral fashion. In a stepwise fashion along the lateral aspects of the uterus the round ligament and broad ligaments were cauterized transected down to the level of the uterine arteries. A bladder flap was created in the bladder was moved distally to the end of the cervix and over the Ambreen cup. The bilateral uterine arteries were cauterized and transected. Colpotomy was then performed. In a circumferential fashion the vagina was transected using unipolar cautery. The incision was made down on the Ambreen cup. The uterus, cervix, fallopian tubes and ovaries were taken out through the vagina. A pneumo occluder was placed in the vagina. The vaginal cuff was closed with a 0 V lock suture in a running fashion. The pelvis was irrigated with copious amounts antibiotic irrigation. The ureters were again examined and found to be intact and flowing freely under the uterine arteries into the bladder. The bladder was intact. It was examined directly. The vagina was irrigated with Betadine solution after removal of the Pneumo occluder. The patient was taken to recovery room. She was stable condition. Sponge lap and needle counts were correct x2. Estimated Blood Loss 50 Drains Yes Packing No Pathology Yes Complications No immediate complications Condition Stable Disposition Floor
[2023-03-16] MEDS: fentaNYL CITRATE INJ (*CRX) 100 MCG/2 ML VIAL 25 MCG IV PUSH ×2 (12:14→12:25)
--- NOTE | 2023-03-16 12:55 | PC.NURSE ---
Patient transferred to post room #289 via ( stretcher ). Support person present. Oriented to unit, room, information board, rooming in, admission packet and security measures. Patient verbalizes understanding.
[2023-03-16] MEDS: ONDANSETRON INJ 4 MG/2 ML VIAL IV PUSH (13:22)
[2023-03-16] MEDS: DEXTROSE 5%/0.45% SOD CHL 1,000 ML 125 ML IV CONT (13:28)
[2023-03-16] MEDS: amLODIPine BESYLATE 5 MG TABLET 10 MG PO (13:29)
[2023-03-16] MEDS: KETOROLAC 30 MG/ML VIAL (*BKC) IV PUSH (13:30)
[2023-03-16] MEDS: HYDROcodone/acetaminophen (*CRX) 5-325 MG TABLET 1 TAB PO (13:33)
[2023-03-16] MEDS: HYDROcodone/acetaminophen (*CRX) 10-325 MG TABLET 1 TAB PO ×2 (17:08→21:09)
[2023-03-16] MEDS: IBUPROFEN 600 MG TABLET PO (19:32)
[2023-03-16] MEDS: ONDANSETRON HCL ODT 4 MG TABLET 8 MG PO (21:09)
[2023-03-17] MEDS: HYDROcodone/acetaminophen (*CRX) 10-325 MG TABLET 1 TAB PO ×2 (04:23→08:12)
[2023-03-17] MEDS: IBUPROFEN 600 MG TABLET PO (04:23)
[2023-03-17 04:27] VITALS: BP 110/52; PULSE 86; RESP 16; TEMP 36.5; O2SAT 99
[2023-03-17 07:50] VITALS: BP 111/73; PULSE 58; RESP 16; TEMP 36.8; O2SAT 100
[2023-03-17] MEDS: ONDANSETRON HCL ODT 4 MG TABLET 8 MG PO (08:11)
--- NOTE | 2023-03-17 08:30 | PM.GYNPNOP ---
DIRECTOR OF ANALYTICAL DEVELOPMENT - A/P Postoperative Procedures: Procedures Operation Date: 03/16/23 10:00 Actual Procedure Side Surgeon p Total Laparoscopic Hysterectomy with Bilateral Salpingo-Oophorectomy Bilateral Pushpa Purvis MD Postoperative day: 1 Postoperative status: doing well Postoperative plan: see orders Time Spent With Patient Time: Total time spent is greater than 50% in coordination of care (as documented) at patient's floor/unit and/or counseling patient: Time with patient: 15 - 25 minutes DIRECTOR OF ANALYTICAL DEVELOPMENT- PN:Subj Post-Op Subjective Date/time seen: 03/17/23 08:30 Subjective: patient reports feeling better, patient has no complaints and pain is well controlled Exam Const: General: healthy appearing, comfortable and no acute distress Resp: Auscultation: clear to auscultation bilaterally, no rales, no rhonchi and no wheezes Cardio: Rate: regular rate Heart sounds: no click, no murmurs and no rubs GI: Inspection: non-distended Auscultation: normal bowel sounds Extrem: General: normal to inspection, no pedal edema and no calf tenderness DIRECTOR OF ANALYTICAL DEVELOPMENT - PN: Obj Data Vital Signs Vital Signs: Vital Signs - 24 hr 03/16/23 11:34 03/16/23 11:45 03/16/23 12:00 Temperature 97.5 F L Pulse Rate 84 76 75 Respiratory Rate 14 16 16 Blood Pressure 119/79 117/73 122/76 Pulse Oximetry 95 96 98 Oxygen Delivery Simple Face Mask Simple Face Mask Simple Face Mask Oxygen Flow Rate 6 6 6 03/16/23 12:10 03/16/23 12:15 03/16/23 12:30 Temperature 98.0 F Pulse Rate 82 76 Respiratory Rate 16 16 Blood Pressure 120/77 118/74 Pulse Oximetry 92 93 Oxygen Delivery Room Air Room Air Room Air Oxygen Flow Rate 03/16/23 12:45 03/16/23 13:10 03/16/23 13:30 Temperature 97.5 F L Pulse Rate 76 77 Respiratory Rate 16 18 Blood Pressure 123/67 Pulse Oximetry 93 96 Oxygen Delivery Room Air Room Air Oxygen Flow Rate 03/16/23 18:56 03/16/23 18:56 03/16/23 23:34 Temperature 99.1 F 98 F Pulse Rate 92 89 Respiratory Rate 16 14 Blood Pressure 118/70 103/59 L Pulse Oximetry 97 99 Oxygen Delivery Room Air Oxygen Flow Rate 03/16/23 23:34 03/17/23 04:27 03/17/23 04:27 Temperature 97.7 F Pulse Rate 86 Respiratory Rate 16 Blood Pressure 110/52 L Pulse Oximetry 99 Oxygen Delivery Room Air Room Air Oxygen Flow Rate 03/17/23 07:39 03/17/23 07:50 Temperature 98.3 F Pulse Rate 58 L Respiratory Rate 16 Blood Pressure 111/73 Pulse Oximetry 100 Oxygen Delivery Room Air Oxygen Flow Rate Intake/Output Intake/Output: Intake & Output 03/14/23 03/15/23 03/16/23 03/17/23 23:59 23:59 23:59 23:59 Intake Total 1050 Output Total 850 Balance 200 Meds/Results Medications: Active Medications Generic Name Dose Route Start Last Admin Trade Name Freq PRN Reason Stop Dose Admin Hydrocodone Bitart/Acetaminophen 1 tab 03/16/23 12:52 Hydrocodone/Acetaminophen (*Crx) 5-325 Mg Tablet PO Q6H PRN Pain Rated 4-6 Hydrocodone Bitart/Acetaminophen 1 tab 03/16/23 12:52 03/16/23 13:33 Hydrocodone/Acetaminophen (*Crx) 5-325 Mg Tablet PO 1 tab Q3H PRN Administration Pain Rated 5 or Less Hydrocodone Bitart/Acetaminophen 1 tab 03/16/23 12:52 03/17/23 08:12 Hydrocodone/Acetaminophen (*Crx) 10-325 Mg Tablet PO 1 tab Q3H PRN Administration Pain Rated 6 or Greater Amlodipine Besylate 10 mg 03/16/23 13:00 03/16/23 13:29 Amlodipine Besylate 5 Mg Tablet PO 10 mg DAILY@1200 PRIYANK Administration Dextrose/Sodium Chloride 1,000 mls @ 125 mls/hr 03/16/23 12:52 03/16/23 21:09 Dextrose 5% Sodium Chloride 0.45% IV CONT Not Given .Q8H PRIYANK Ibuprofen 600 mg 03/16/23 12:52 03/17/23 04:23 Ibuprofen 600 Mg Tablet PO 600 mg Q6H PRN Administration Cramping Ketorolac Tromethamine 30 mg 03/16/23 12:52 03/16/23 13:30 Ketorolac 30 Mg/Ml Vial (*Bkc) IV PUSH 03/21/23 12:51 30 mg Q6H PRN Administration Pain Rated 4-6 Naloxo
== END 2023-03-17 10:06 | disposition home or self-care (01) ==
LOC: ANHSURGERY 09:49 → ANHOB2 12:57
PROVIDERS: PCP Family Medicine; Visit Provider Obstetrics & Gynecology
PROC: 0UT9FZZ Resection of Uterus, Via Natural or Artificial Opening With Percutaneous Endoscopic Assistance (ICD-10-PCS; CPT 58571; principal; 2023-03-16 10:00)
DX: N92.0 Excessive and frequent menstruation with regular cycle (principal); N72 Inflammatory disease of cervix uteri; N88.8 Other specified noninflammatory disorders of cervix uteri; N87.9 Dysplasia of cervix uteri, unspecified; D72.18 Eosinophilia in diseases classified elsewhere; D25.2 Subserosal leiomyoma of uterus; N83.02 Follicular cyst of left ovary; F17.210 Nicotine dependence, cigarettes, uncomplicated; F12.90 Cannabis use, unspecified, uncomplicated; E66.9 Obesity, unspecified; Z68.39 Body mass index [BMI] 39.0-39.9, adult
CPT/HCPCS: 58571; 36415; 80048; 86850; 86900; 86901; 88307; A9270; J0690; J1100; J1170; J1885; J2250; J2405; J2704; J3010; J7030; J7120

== ENCOUNTER 2023-09-21 12:55 | Emergency (ER) | payer BC, SELFPAY ==
[2023-09-21 13:05] VITALS: BP 127/73; PULSE 104; RESP 18; TEMP 37.1; O2SAT 98
--- NOTE | 2023-09-21 13:28 | ED.URI ---
HPI - URI/Sore Throat General Chief Complaint: Upper Respiratory Infection Stated Complaint: Sore Throat Time Seen by Provider: 09/21/23 13:30 Source: patient, RN notes reviewed and old records reviewed Mode of arrival: ambulatory Limitations: no limitations History of Present Illness HPI Narrative: 43-year-old female to the skin with complaint of nasal congestion, nasal discharge, sore throat that is worse with swallowing, and swollen, red tonsils for 3 days. Patient denies fever, shortness of breath, headache, ear pain. Patient able to tolerate fluids by mouth. Patient in no acute distress. Respirations even and nonlabored. Related Data Home Medications Medication Instructions Recorded Confirmed amlodipine 10 mg tablet 10 mg PO QNOON 03/09/23 09/21/23 Allergies Allergy/AdvReac Type Severity Reaction Status Date / Time hydrochlorothiazide Allergy Intermediate Chest Pain Verified 09/21/23 13:26 losartan Allergy Intermediate Chest Pain Verified 09/21/23 13:26 codeine AdvReac Intermediate Vomiting Verified 09/21/23 13:26 hydrocodone AdvReac Intermediate Vomiting Verified 09/21/23 13:26 tramadol AdvReac Intermediate Vomiting Verified 09/21/23 13:26 Review of Systems Review of Systems: All systems reviewed & are unremarkable except as noted in HPI and below Constitutional: Constitutional: Reports as per HPI, Denies body ache(s), Denies chills and Denies fever(s) Eyes: Eyes: Reports no additional eye complaints ENT: Reports as per HPI, Denies otalgia, Denies headache(s), Reports nasal congestion, Reports nasal discharge, Reports odynophagia and Reports sore throat Cardiovascular: Cardiovascular: Reports no additional cardiovascular complaints, Denies chest pain and Denies dyspnea Respiratory: Respiratory: Reports no additional respiratory complaints, Denies cough and Denies dyspnea Musculoskeletal: Musculoskeletal: Reports no additional musculoskeletal complaints Neurologic: Reports system reviewed and no additional complaints, except as documented Psychiatric: Psychiatric: Reports no additional psychiatric complaints PMFSH Past Medical History Medical History Fatty liver 2007 when h/o of meningitis Social History Social History Smoking packs per day: 1 Smoking cigarettes per day: 20.0 Years smoked: 25 Smoking pack-years: 25.00 Smoking status: Current every day smoker Tobacco type: cigarettes Alcohol intake: current Drinks per week: 2 Substance use: current Substance use type: marijuana Living arrangements: with family Gender identity (if verbalized by the patient): Female Sexual Orientation (if Verbalized by the Patient): Straight or Heterosexual Spiritual care concerns: No Comments At the time of my signature, I reviewed and agree with the nursing past medical, surgical, social, and family history. There is no relevant family history pertinent to the patient complaint. Exam Const: General: cooperative, no acute distress, alert, in distress mild ( Pain), ill appearing acutely, tired appearing, uncomfortable and well nourished Nutritional Appearance: well nourished Orientation/consciousness: patient oriented x3 Limitations: no limitations HENMT: Head: normal to inspection Ears: external ears normal and TM abnormal bulging bilateral, erythematous bilateral and diffuse and with fluid behind the TM bilateral and diffuse Face/Nose/Sinus: Normal external nose present, Normal nares present, normal facial exam, No erythema and No edema Face and sinus: normal facial exam, no erythema and no edema Mouth: Yes Normal oral and palatal mucosa present Throat: uvula midline, posterior oropharynx abnormal erythema, postnasal drainage and no uvular edema Eyes: General: appearance normal, both eyes and all related structures Neck: Neck: normal visual inspection, fu
[2023-09-21 13:30] VITALS: BP 127/73; PULSE 104; RESP 18; TEMP 37.1; O2SAT 98
== END 2023-09-21 13:53 | disposition home or self-care (01) ==
PROVIDERS: Emergency Provider Nurse Practitioner Family
DX: H66.93 Otitis media, unspecified, bilateral (principal); Z20.822 Contact with and (suspected) exposure to COVID-19; F17.210 Nicotine dependence, cigarettes, uncomplicated; F12.90 Cannabis use, unspecified, uncomplicated
CPT/HCPCS: 87426; 87804; 87880; 99213; G0463

== ENCOUNTER 2024-12-17 07:28 | Emergency (ER) | payer OTHER, SELFPAY ==
[2024-12-17] VITALS (7 sets, daily range): BP systolic 113–127; BP diastolic 67–78; PULSE 66–90; RESP 15–20; TEMP 36.9; O2SAT 96–100
--- NOTE | ~2024-12-17 | XR_ITS ---
EXAMINATION: XR chest 2V 12/17/2024 08:44 INDICATION: Chest pain for 3 days PROCEDURE: Two-view chest COMPARISON: 02/16/2023 FINDINGS: The lungs are clear. The cardiomediastinal silhouette is within normal limits. There are no pleural effusions. There is no pneumothorax suspected. IMPRESSION: 1: NO ACUTE CARDIOPULMONARY DISEASE. Reviewed, dictated and finalized at location A.
--- NOTE | ~2024-12-17 | CT_ITS ---
EXAMINATION: CTA chest PE protocol DATE: 12/17/2024 10:15 INDICATION: Right-sided chest pain. TECHNIQUE: Computed tomography (CT) pulmonary angiogram of the chest was performed with 100 mL Omnipa que-350 intravenous contrast. Additional 3D reconstructions utilizing coronal maximum intensity proje ction (MIP) were performed. Automated exposure control and iterative reconstruction technique were em ployed. The dose-length product was 764.98 mGy-cm. COMPARISON: 02/16/2023 FINDINGS: No pulmonary embolism. No pneumonia, pulmonary edema or pleural effusion. Heart size normal. No peric ardial effusion. Thoracic aorta is normal in caliber with no dissection. No pathologically enlarged t horacic lymphadenopathy. Cholecystectomy clips at the gallbladder fossa. Diffuse hepatic steatosis. M inimal thoracic spondylosis. Minimal thoracic spondylosis. IMPRESSION: 1. No pulmonary embolism or other acute cardiopulmonary disease. Reviewed, dictated and finalized at location A.
--- NOTE | 2024-12-17 07:29 | ECG_ITS ---
Test Date: 2024-12-17 07:33:29 Measurements Intervals [place] Rate: 85 P: 55 KS: 166 QRS: 0 QRSD: 96 T: 51 QT: 367 QTc: 438 Interpretive Statements SINUS RHYTHM POSSIBLE LEFT ATRIAL ENLARGEMENT DELAYED PRECORDIAL R/S TRANSITION BASELINE ARTIFACT- I, II, AVR BORDERLINE ECG No previous ECG available for comparison Electronically Signed On 12-17-2024 07:46:07 CDT by Mikal Chopra D.O.
--- OUTSIDE RECORDS SUMMARY | 2024-12-17 07:34 | XMS_ITS | Clinical Summary ---
Author Organization [facility] Address [address] [place] [id number] Care Team Providers Care Swimmer Name Role Phone Kristyn Quiroz MD Primary Care Provider + Allergies No known active allergies Medications azithromycin (ZITHROMAX) 250 mg tablet azithromycin 250 mg tablet TAKE 2 TABLET BY MOUTH ON DAY 1 THEN 1 TABLET BY MOUTH EVERY DAY FOR 4 DAYS Active dicyclomine (BENTYL) 20 mg tablet dicyclomine 20 mg tablet TK 1 T PO QID Active HYDROcodone-chiara taminophen (NORCO) 5-325 mg per tablet hydrocodone 5 mg-acetaminophen 325 mg tablet TK 1 TO 2 TS PO Q 4 H PRF PAIN Active phentermine (ADIPEX-P) 37.5 mg tablet phentermine 37.5 mg tablet TAKE 1 TABLET BY MOUTH ONCE DAILY Active amLODIPine (NORVASC) 10 mg tablet Take 1 tablet (10 mg total) by mouth daily 0 Active traMADoL (ULTRAM) 50 mg tablet Take 1 tablet every 6 hours by oral route. Active Active Problems Problem Noted Date Diagnosed Date Mastodynia 04/04/2023 Social History Tobacco Use Types Packs/Day Years Used Date Smoking Tobacco: Never Passive Smoke Exposure: Never Smokeless Tobacco: Never Tobacco Cessation:Counseling Given: Not Answered Comments Unknown Sex and Gender Information Value Date Recorded Sex Assigned at Not on file Legal Sex Female 2:17 PM IT ASSISTANT Gender Identity Not on file Sexual Orientation Not on file Obstetrics History Last Filed Vital Signs Vital Sign Reading Time Taken Comments Blood Pressure 114/76 04/22/2022 11:48 AM IT ASSISTANT Pulse 105 04/22/2022 11:48 AM IT ASSISTANT Temperature 36.9 C (98.4 F) 04/22/2022 11:48 AM IT ASSISTANT Respiratory Rate 18 04/22/2022 11:48 AM IT ASSISTANT Oxygen Saturation 98% 04/22/2022 11:48 AM IT ASSISTANT Inhaled Oxygen Concentration - - Weight 95.3 kg (210 lb) 04/04/2023 1:50 PM IT ASSISTANT Height 162.6 cm (5' 4) 04/04/2023 1:50 PM IT ASSISTANT Body Mass Index 36.05 04/04/2023 1:50 PM IT ASSISTANT Plan of Treatment Health Maintenance Due Date Last Done Comments Breast Cancer Screening-Mammogram 1982 Cervical Cancer Screening 1982 Depression Screening 1982 Hepatitis C Screening 1982 Varicella Vaccines (1 of 2 - 13+ 2-dose series) 09/22/1995 Hepatitis B Screening 2000 Regular Well Visit/Exam 18-64 2000 HPV Vaccines (1 - 3-dose SCDM series) 2009 DTaP/Tdap/Td Vaccine (7 - Td or Tdap) 08/16/2023 08/15/2013, 11/19/1997, 02/24/1988, Additional history exists Influenza Vaccine (#1) 2025 , 04/13/2021, 03/11/2016, Additional history exists Pneumococcal vaccine <65 Aged Out No longer eligible based on patient's age to complete this topic Insurance [employer] [place] [place] Care Teams Swimmer Relationship Specialty Start Date End Date Kristyn Quiroz MD [address] [place] [address] [place] [address] PCP - General Family Medicine 04/22/22
--- OUTSIDE RECORDS SUMMARY | 2024-12-17 07:34 | XMS_ITS | Referral Summary ---
Author Organization [facility] Address [address] [place] [id number] Care Team Providers Care Fashion Intern Name Role Phone Kristyn Quiroz MD Primary [...] on file Legal Sex Female 2:17 PM MINE PROMOTOR Gender Identity Not on file Sexual Orientation Not on file Last Filed Vital Signs Vital Sign Reading Time Taken Comments Blood Pressure 114/76 04/22/2022 11:48 AM MINE PROMOTOR Pulse 105 04/22/2022 11:48 AM MINE PROMOTOR Temperature 36.9 C (98.4 F) 04/22/2022 11:48 AM MINE PROMOTOR Respiratory Rate 18 04/22/2022 11:48 AM MINE PROMOTOR Oxygen Saturation 98% 04/22/2022 11:48 AM MINE PROMOTOR Inhaled Oxygen Concentration - - Weight 95.3 kg (210 lb) 04/04/2023 1:50 PM MINE PROMOTOR Height 162.6 cm (5' 4) 04/04/2023 1:50 PM MINE PROMOTOR Body Mass Index 36.05 04/04/2023 1:50 PM MINE PROMOTOR Plan of Treatment Not on file Insurance [facility] Care Teams Fashion Intern Relationship Specialty Start Date End Date Kristyn Quiroz MD [address] [place] [address] [address] [place] [id number] PCP - General Family Medicine 04/22/22
[2024-12-17] MEDS: ASPIRIN 81 MG CHEWABLE TABLET 324 MG PO (07:47)
[2024-12-17 07:56] LABS: Hematocrit 41.4 % (37.0-47.0); Hemoglobin 13.6 g/dL (12.0-15.0); Immature Granulocyte Percent A 0.4 % (0-0.5); Lymphocytes Absolute Auto 2.57 K/mm3 (0.9-3.2); Mean Corpuscular HGB Conc 32.9 g/dl (32-36); Mean Corpuscular Hemoglobin 30.2 pg (26-34); Mean Corpuscular Volume 92.0 fl (80-100); Nucleated Red Blood Cells Absolute Auto 0.000 K/mm3 (0.0-0.012); Nucleated Red Blood Cells Perc 0.0 % (0.0-0.2); Platelet Count Result 355 k/mm3 (150-375); Red Blood Count 4.50 M/mm3 (4.2-5.4); White Blood Count 9.7 K/mm3 (4.5-10.0)
[2024-12-17 08:16] LABS: Alanine Aminotransferase 73 U/L (6-35); Albumin Level 4.2 g/dL (3.5-5.1); Alkaline Phosphatase 84 U/L (38-126); Anion Gap 10 mmol/L (4-12); Aspartate Amino Transferase 46 U/L (14-36); Bilirubin,Total 0.2 mg/dL (0.2-1.3); Blood Urea Nitrogen 9 mg/dL (7-17); Calcium 9.6 mg/dL (8.4-10.2); Carbon Dioxide 23 mmol/L (22-30); Chloride 107 mmol/L (98-107); Estimated CRCL calculation 101 ml/min; Estimated Glomerular Filt Rate > 60; Glucose 120 mg/dL (65-110); Lipase 181 U/L (23-300); Potassium 4.0 mmol/L (3.4-5.0); Sodium 140 mmol/L (137-145); Total Protein 7.5 g/dL (6.3-8.2)
[2024-12-17 08:20] LABS: INR 0.9; Prothrombin Time 12.6 Seconds (11.1-14.7)
[2024-12-17 08:21] LABS: Partial Thromboplastin Time 28.8 Seconds (22.3-36.8)
--- OUTSIDE RECORDS SUMMARY | 2024-12-17 08:26 | XMS_ITS | Clinical Summary ---
Author Organization [facility] Address [address] [place] [phone] Care Team Providers Care Director Of Scientific Research Name Role Phone Kristyn Quiroz MD Primary [...] on file Legal Sex Female 2:17 PM CARTRIDGE ASSEMBLING MACHINE ADJUSTER Gender Identity Not on file Sexual Orientation Not on file Obstetrics History Last Filed Vital Signs Vital Sign Reading Time Taken Comments Blood Pressure 114/76 04/22/2022 11:48 AM CARTRIDGE ASSEMBLING MACHINE ADJUSTER Pulse 105 04/22/2022 11:48 AM CARTRIDGE ASSEMBLING MACHINE ADJUSTER Temperature 36.9 C (98.4 F) 04/22/2022 11:48 AM CARTRIDGE ASSEMBLING MACHINE ADJUSTER Respiratory Rate 18 04/22/2022 11:48 AM CARTRIDGE ASSEMBLING MACHINE ADJUSTER Oxygen Saturation 98% 04/22/2022 11:48 AM CARTRIDGE ASSEMBLING MACHINE ADJUSTER Inhaled Oxygen Concentration - - Weight 95.3 kg (210 lb) 04/04/2023 1:50 PM CARTRIDGE ASSEMBLING MACHINE ADJUSTER Height 162.6 cm (5' 4) 04/04/2023 1:50 PM CARTRIDGE ASSEMBLING MACHINE ADJUSTER Body Mass Index 36.05 04/04/2023 1:50 PM CARTRIDGE ASSEMBLING MACHINE ADJUSTER Plan of Treatment Health Maintenance Due Date [...] patient's age to complete this topic Insurance [employer] [facility] [place] [facility] [place] Care Teams Director Of Scientific Research Relationship Specialty Start Date End Date Kristyn Quiroz MD [address] [place] [address] [place] [address] PCP - General Family Medicine 04/22/22
--- OUTSIDE RECORDS SUMMARY | 2024-12-17 08:26 | XMS_ITS | Referral Summary ---
Author Organization [facility] Address [address] [place] [id number] Care Team Providers Care Crimping Machine Operator For Metal Name Role Phone Kristyn Quiroz MD Primary [...] on file Legal Sex Female 2:17 PM SUPERVISOR PILE DRIVING Gender Identity Not on file Sexual Orientation Not on file Last Filed Vital Signs Vital Sign Reading Time Taken Comments Blood Pressure 114/76 04/22/2022 11:48 AM SUPERVISOR PILE DRIVING Pulse 105 04/22/2022 11:48 AM SUPERVISOR PILE DRIVING Temperature 36.9 C (98.4 F) 04/22/2022 11:48 AM SUPERVISOR PILE DRIVING Respiratory Rate 18 04/22/2022 11:48 AM SUPERVISOR PILE DRIVING Oxygen Saturation 98% 04/22/2022 11:48 AM SUPERVISOR PILE DRIVING Inhaled Oxygen Concentration - - Weight 95.3 kg (210 lb) 04/04/2023 1:50 PM SUPERVISOR PILE DRIVING Height 162.6 cm (5' 4) 04/04/2023 1:50 PM SUPERVISOR PILE DRIVING Body Mass Index 36.05 04/04/2023 1:50 PM SUPERVISOR PILE DRIVING Plan of Treatment Not on file Insurance [facility] Care Teams Crimping Machine Operator For Metal Relationship Specialty Start Date End Date Kristyn Quiroz MD [address] [place] [address] DR AG[address] [place] [id number] PCP - General Family Medicine 04/22/22
[2024-12-17 08:28] LABS: Troponin I < 0.012 ng/mL (0.000-0.034)
--- NOTE | 2024-12-17 10:28 | ECG_ITS ---
Test Date: 2024-12-17 10:32:39 Measurements Intervals Hibbs Rate: 66 P: 57 NE: 176 QRS: 6 QRSD: 98 T: 56 QT: 427 QTc: 447 Interpretive Statements SINUS RHYTHM POSSIBLE LEFT ATRIAL ENLARGEMENT BASELINE ARTIFACT- I, II, AVR, V1 BORDERLINE ECG Compared to ECG 12/17/2024 07:33:29 No significant changes Electronically Signed On 12-17-2024 11:01:01 CDT by Mikal Chopra D.O.
[2024-12-17 11:15] LABS: Troponin I < 0.012 ng/mL (0.000-0.034)
--- NOTE | 2024-12-17 11:25 | ED_ITS ---
HPI - Chest Pain General Chief Complaint: Chest Pain Stated Complaint: chest pain Time Seen by Provider: 12/17/24 07:48 Source: patient Mode of arrival: ambulatory Limitations: no limitations History of Present Illness HPI narrative: 44-year-old with a history of hypertension presents to the ER with a complains of right-sided chest pain which started 2 days ago. Patient states that pain gets worse with deep inspiration or movement. She denies any trauma or lifting any heavy objects. Denies any cough or fever or chills. complaint: chest pain Onset (ago): day(s) (2) Timing of current episode: constant Pain location: right chest Pain radiation: none Severity: mild Quality: aching Relieving factors: nothing Exacerbating factors: movement Treatment prior to arrival: none Risk Factors Coronary artery disease risk factors: none Thoracic aortic dissection risk factors: none Related Data Home Medications ?Medication ?Instructions ?Recorded ?Confirmed ?Last Taken ?Type amlodipine 10 mg tablet 10 mg PO QNOON 03/09/23 09/21/23 Unknown History Allergies Allergy/AdvReac Type Severity Reaction Status Date / Time hydrochlorothiazide Allergy Intermediate Chest Pain Verified 12/17/24 07:42 losartan Allergy Intermediate Chest Pain Verified 12/17/24 07:42 codeine AdvReac Intermediate Vomiting Verified 12/17/24 07:42 hydrocodone AdvReac Intermediate Vomiting Verified 12/17/24 07:42 tramadol AdvReac Intermediate Vomiting Verified 12/17/24 07:42 Review of Systems 2 Review of Systems: All systems reviewed & are unremarkable except as noted in HPI and below Constitutional: Constitutional: Reports no additional constitutional complaints Eyes: Eyes: Reports no additional eye complaints ENT: Reports system reviewed and no additional complaints, except as documented Cardiovascular: Cardiovascular: Reports as per HPI Respiratory: Respiratory: Reports no additional respiratory complaints Gastrointestinal: Gastrointestinal: Reports no additional gastrointestinal complaints Musculoskeletal: Musculoskeletal: Reports no additional musculoskeletal complaints Integumentary/Breasts: Skin/Breast: Reports system reviewed and no additional complaints, except as docu [facility] Past Medical History Medical History Fatty liver 2007 when h/o of meningitis Social History Social History Smoking packs per day: 1 Smoking cigarettes per day: 20.0 Years smoked: 25 Smoking pack-years: 25.00 Smoking status: Current every day smoker Tobacco type: cigarettes Alcohol intake: current Drinks per week: 2 Substance use: current Substance use type: marijuana Living arrangements: with family Gender identity (if verbalized by the patient): Female Sexual Orientation (if Verbalized by the Patient): Straight or Heterosexual Spiritual care concerns: No Exam 2 Narrative: GENERAL: Well-appearing, well-nourished, and in no acute distress. HEAD: Normocephalic, atraumatic. EYES: PERRLA and EOMI. ENT: Nares clear, no rhinorrhea or epistaxis. Mucous membranes moist. NECK: Supple. CHEST: Clear to auscultation. No respiratory distress. HEART: Regular rate and rhythm. No murmur heard. Normal peripheral pulses. ABDOMEN: Soft, nontender, nondistended, normal active bowel sounds. EXTREMITIES: Normal range of motion. No edema. SKIN: Warm, dry, no rash. NEURO: No focal deficits. Alert and oriented x3. PSYCH: Normal mood and affect. Course Course Emergency Course: Patient comfortably resting in no discomfort informed about the EKG lab work, CT findings cause of her pain could be musculoskeletal recommended her to follow up with the primary doctor Vital Signs Vital signs: Vital Signs Temperature 36.9 C 12/17/24 07:38 Pulse Rate 90 12/17/24 07:38 Respiratory Rate 15 12/17/24 07:38 Blood Pressure 118/78 12/17/24 07:38 Pulse Oximetry 96 12/17/24 07:38 Oxygen Delivery Room Air 12/17/24 07:38 Temperature 36.9 C 12/17/24 07:38 Pulse Rate 66 12/17/24 10:01 Respiratory Rate 20 12/17/24 10:01 Blood Pressure 113/73 12/17/24 10:01 Pulse Oximetry 97 12/17/24 10:01 Oxygen Delivery Room Air 12/17/24 07:43 MDM - Chest Pain Differential Diagnosis Differential diagnosis: Likely pneumothorax, atypical chest pain, st elevation myocardial infarction, chest pain and other (PE) Medical Records Data Attestation: I reviewed the patient's medical records. Lab Data Attestation: I reviewed the patient's lab results. 12/17/24 07:48 12/17/24 07:48 Labs: Lab Results 12/17/24 12/17/24 Range/Units 07:48 10:38 WBC 9.7 (4.5-10.0) K/mm3 RBC 4.50 (4.2-5.4) M/mm3 Hgb 13.6 (12.0-15.0) g/dL Hct 41.4 (37.0-47.0) % MCV 92.0 (80-100) fl MCH 30.2 (26-34) pg MCHC 32.9 (32-36) g/dl RDW 13.1 (11.5-14.5) % Plt Count 355 (150-375) k/mm3 MPV 10.0 (7.4-10.4) fl Immature Gran % (Auto) 0.4 (0-0.5) % Neut % (Auto) 61.1 (45.5-73.1) % Lymph % (Auto) 26.5 (18.3-44.2) % [place] % (Auto) 8.3 (2.6-8.5) % Eos % (Auto) 3.2 (0-4.4) % Baso % (Auto) 0.5 (0.2-1.2) % Lymph # (Auto) 2.57 (0.9-3.2) K/mm3 [place] # (Auto) 0.8 H (0.1-0.6) K/mm3 Eos # (Auto) 0.3 (0-0.3) K/mm3 Baso # (Auto) 0.1 (0.0-0.1) K/mm3 Abs Immat Gran (auto) 0.04 H (0.00-0.031) K/mm3 Absolute Neuts (auto) 5.9 (1.3-6.7) K/mm3 Absolute Nucleated RBC 0.000 (0.0-0.012) K/mm3 Nucleated RBC % 0.0 (0.0-0.2) % PT 12.6 (11.1-14.7) Seconds INR 0.9 APTT 28.8 (22.3-36.8) Seconds D-Dimer 0.76 H (<0.48) ug/mL Sodium 140 (137-145) mmol/L Potassium 4.0 (3.4-5.0) mmol/L Chloride 107 (98-107) mmol/L Carbon Dioxide 23 (22-30) mmol/L Anion Gap 10 (4-12) mmol/L BUN 9 (7-17) mg/dL Creatinine 0.71 (0.7-1.0) mg/dL Estim Creat Clear Calc 101 ml/min Estimated GFR > 60 (59 - ) Glucose 120 H (65-110) mg/dL Calcium 9.6 (8.4-10.2) mg/dL Total Bilirubin 0.2 (0.2-1.3) mg/dL AST 46 H (14-36) U/L ALT 73 H (6-35) U/L Alkaline Phosphatase 84 (38-126) U/L Troponin I < 0.012 < 0.012 (0.000-0.034) ng/mL Total Protein 7.5 (6.3-8.2) g/dL Albumin 4.2 (3.5-5.1) g/dL Lipase 181 (23-300) U/L Imaging Data Radiologist's impression: ITS Impressions Chest X-Ray 12/17/24 08:45 IMPRESSION: 1: NO ACUTE CARDIOPULMONARY DISEASE. Chest CTA 12/17/24 10:42 IMPRESSION: 1. No pulmonary embolism or other acute cardiopulmonary disease. ECG Data EKG #1: ECG completion date: 12/17/24 ECG completion time: 07:33 EKG Interpretation: normal rate (85), non-specific ST changes, no ST changes and normal QRS Discharge Plan Discharge Clinical Impression: Chest pain Qualifiers: Chest pain type: unspecified Qualified Code(s): R07.9 - Chest pain, unspecified Patient Disposition: Home Condition: Stable Instructions: Chest Pain (ED) Additional Instructions: Continue home medications, follow-up with your primary doctor Patient Language: Argentine Prescriptions: No Action amlodipine 10 mg Tablet 10 mg PO QNOON Follow-up/Referrals: Richie,Kristyn Rojo MD [Primary Care Provider] - Time of Disposition: 11:26
== END 2024-12-17 11:43 | disposition home or self-care (01) ==
PROVIDERS: Emergency Provider Family Medicine; PCP Family Medicine
DX: R07.9 Chest pain, unspecified (principal); F17.210 Nicotine dependence, cigarettes, uncomplicated
CPT/HCPCS: 36415; 71046; 71275; 80053; 83690; 84484; 85025; 85380; 85610; 85730; 93005; 99284; A9270; Q9967

== ENCOUNTER 2025-01-01 10:18 | Emergency (ER) | payer OTHER, SELFPAY ==
[2025-01-01 10:25] VITALS: BP 98/70; PULSE 72; RESP 18; TEMP 36; O2SAT 98
--- OUTSIDE RECORDS SUMMARY | 2025-01-01 10:45 | XMS_ITS | Clinical Summary ---
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 Gender Identity Not on file Sexual Orientation Not on file Obstetrics History Last Filed Vital Signs Vital Sign Reading Time Taken Comments Blood Pressure 114/76 04/22/2022 11:48 AM LIFTS AND CRANES INSPECTOR Pulse 105 04/22/2022 11:48 AM LIFTS AND CRANES INSPECTOR Temperature 36.9 C (98.4 F) 04/22/2022 11:48 AM LIFTS AND CRANES INSPECTOR Respiratory Rate 18 04/22/2022 11:48 AM LIFTS AND CRANES INSPECTOR Oxygen Saturation 98% 04/22/2022 11:48 AM LIFTS AND CRANES INSPECTOR Inhaled Oxygen Concentration - - Weight 95.3 kg (210 lb) 04/04/2023 1:50 PM LIFTS AND CRANES INSPECTOR Height 162.6 cm (5' 4) 04/04/2023 1:50 PM LIFTS AND CRANES INSPECTOR Body Mass Index 36.05 04/04/2023 1:50 PM LIFTS AND CRANES INSPECTOR Plan of Treatment Health Maintenance Due Date [...] patient's age to complete this topic Insurance [employer] [place] [employer] [place] Care Teams Pulpwood Buyer Relationship Specialty Start Date End Date Kristyn Quiroz MD [address] [place] [address] [place] [address] PCP - General Family Medicine 04/22/22
--- NOTE | 2025-01-01 10:54 | ED.URI ---
HPI - URI/Sore Throat General Chief Complaint: Upper Respiratory Infection Stated Complaint: Head Pain Time Seen by Provider: 01/01/25 10:20 Source: patient and RN notes reviewed Mode of arrival: ambulatory Limitations: no limitations History of Present Illness HPI Narrative: 44-year-old female presents Express Care complaining of upper respiratory symptoms for approximately 4 days. Patient reports sore throat, sinus pressure, earache, congestion, runny nose, cough, body aches and voice hoarseness. Patient reports she has a dry nonproductive cough. Patient denies any chest pain, shortness of breath, nausea, vomiting, diarrhea, or any other symptoms. Patient has been taking Mucinex and Tylenol with minimal relief. Patient is a half a pack a day smoker. Related Data Home Medications ?Medication ?Instructions ?Recorded ?Confirmed ?Last Taken ?Type amlodipine 10 mg tablet 10 mg PO QNOON 03/09/23 09/21/23 Unknown History Allergies Allergy/AdvReac Type Severity Reaction Status Date / Time hydrochlorothiazide Allergy Intermediate Chest Pain Verified 01/01/25 10:28 losartan Allergy Intermediate Chest Pain Verified 01/01/25 10:28 codeine AdvReac Intermediate Vomiting Verified 01/01/25 10:28 hydrocodone AdvReac Intermediate Vomiting Verified 01/01/25 10:28 tramadol AdvReac Intermediate Vomiting Verified 01/01/25 10:28 Review of Systems Review of Systems: CONSTITUTIONAL: Denies fever, chills, body aches, or sweats. EYES: Denies visual changes, redness, or discharge. ENT: Positive for rhinorrhea, congestion, sore throat, voice hoarseness, or otalgia. Negative for difficulty clearing secretions or dysphagia. CARDIOVASCULAR: Denies chest pain, palpitations, or edema. RESPIRATORY: Positive for cough. Negative for dyspnea. GASTROINTESTINAL: Denies abdominal pain, nausea, vomiting, or diarrhea. GENITOURINARY: Denies dysuria or hematuria. SKIN: Denies rash or itching. MUSCULOSKELETAL: Denies back pain, joint pain, or myalgia. NEUROLOGIC: Denies headache, numbness, or weakness. PSYCHIATRIC: Denies anxiety or depression. All other systems reviewed are negative, except as documented in HPI. [facility] Past Medical History Medical History Fatty liver 2007 when h/o of meningitis Social History Social History Smoking packs per day: 1 Smoking cigarettes per day: 20.0 Years smoked: 25 Smoking pack-years: 25.00 Smoking status: Current every day smoker Tobacco type: cigarettes Alcohol intake: current Drinks per week: 2 Substance use: current Substance use type: marijuana Living arrangements: with family Gender identity (if verbalized by the patient): Female Sexual Orientation (if Verbalized by the Patient): Straight or Heterosexual Spiritual care concerns: No Comments At the time of my signature, I reviewed and agree with the nursing past medical, surgical, social, and family history. There is no relevant family history pertinent to the patient complaint. Exam Narrative: GENERAL: This is a well-nourished, well-developed adult, in no apparent distress. They are non ill-appearing, nontoxic appearing. HEAD: normocephalic, atraumatic. EYES: Sclera clear/white. Vision is grossly intact. Conjunctiva normal bilaterally. Extraocular movements intact. EARS: External ears normal, auditory canals clear and without drainage, TMs without erythema or perforation. Hearing grossly intact. NOSE: External nose normal with no obvious nasal discharge, nasal turbinates erythematous, no rhinorrhea. THROAT: Mucous membranes moist, posterior pharynx erythematous without exudate. Uvula is midline. Postnasal drip present. NECK: Neck supple, non-tender without lymphadenopathy, masses or thyromegaly. CARDIOVASCULAR: Regular rate and rhythm without murmurs, gallops, or rubs. RESPIRATORY: Clear to auscultation. Breath sounds equal bilaterally. No wheezes, rales, or rhonchi. SKIN: warm, Dry, intact with no suspicious lesions or rash, good texture and turgor. NEURO: awake, alert, and oriented to person, place and time. There were no obvious focal neurologic abnormalities. EXTREMITIES: No joint tenderness, effusion, or edema noted. BACK: Nontender without deformity. Course Course Emergency Course: Portions of this record may have been created with voice recognition software Level of Care: Express Care Visit Vital Signs Vital signs: Vital Signs Temperature 96.8 F L 01/01/25 10:25 Pulse Rate 72 01/01/25 10:25 Respiratory Rate 18 01/01/25 10:25 Blood Pressure 98/70 L 01/01/25 10:25 Pulse Oximetry 98 01/01/25 10:25 Oxygen Delivery Room Air 01/01/25 10:25 Temperature 96.8 F L 01/01/25 10:25 Pulse Rate 72 01/01/25 10:25 Respiratory Rate 18 01/01/25 10:25 Blood Pressure 98/70 L 01/01/25 10:25 Pulse Oximetry 98 01/01/25 10:25 Oxygen Delivery Room Air 01/01/25 10:25 MDM - URI/Sore Throat MDM Narrative Medical decision making narrative: Rapid strep negative. Throat culture pending. Symptoms likely viral in etiology. Will prescribe patient benzonatate tablets as needed for cough. Offered viral testing she declined. Discussed physical exam findings. Advised supportive measures and signs/symptoms to go to the ER. Pt is appropriate for outpt treatment and f/u. Differential Diagnosis Differential diagnosis: Likely upper respiratory infection, sinusitis, viral infection and pharyngitis Lab Data Labs: Lab Results 01/01/25 Range/Units 10:55 POC Grp A Strep Screen Negative (Negative) Discharge Plan Discharge Clinical Impression: Upper respiratory infection Qualifiers: URI type: unspecified viral URI Qualified Code(s): J06.9 - Acute upper respiratory infection, unspecified Patient Disposition: Home Condition: Stable Instructions: Upper Respiratory Infection (ED) Additional Instructions: Your rapid strep swab was negative today at [facility]. You will be notified in a few days if the culture comes back positive for strep, and appropriate antibiotics will be called in for you at that time. Your symptoms are likely due to a viral illness, which is not treated with antibiotics. Viral symptoms can be present for up to 10-14 days. Take Tylenol or ibuprofen for fever or pain. Follow the instructions on the bottle. Take benzonatate tablets as needed for cough. Rest and stay hydrated. Follow up with your PCP in 3-5 days if symptoms are not improving. Go to the ER immediately if you develop difficulty breathing or swallowing Patient Language: Romanian Prescriptions: New benzonatate 100 mg capsule 100 mg PO TID PRN (Reason: cough) Qty: 20 0RF No Action amlodipine 10 mg Tablet 10 mg PO QNOON Follow-up/Referrals: Eduard,Ciara Collins RESEARCH INTERVIEWER [Primary Care Provider, Unknown] Time of Disposition: 10:57
[2025-01-01 10:57] LABS: EDSTREPNEGPOS1 Negative (Negative)
== END 2025-01-01 11:02 | disposition home or self-care (01) ==
PROVIDERS: PCP Nurse Practitioner Family
DX: J06.9 Acute upper respiratory infection, unspecified (principal); F17.210 Nicotine dependence, cigarettes, uncomplicated; F12.90 Cannabis use, unspecified, uncomplicated
CPT/HCPCS: 87081; 87880; 99213; G0463

== ENCOUNTER 2025-05-14 13:40 | Emergency (ER) | payer OTHER, SELFPAY ==
[2025-05-14 13:53] VITALS: BP 110/78; PULSE 100; RESP 18; TEMP 36.1; O2SAT 99
--- OUTSIDE RECORDS SUMMARY | 2025-05-14 13:54 | XMS_ITS | Clinical Summary ---
Author Organization [facility] Address [address] [place] [phone] Care Team Providers Care Poultry Veterinarian Name Role Phone Kristyn Quiroz MD Primary [...] on file Legal Sex Female 2:17 PM COUNCIL MEMBER Gender Identity Not on file Sexual Orientation Not on file Last Filed Vital Signs Vital Sign Reading Time Taken Comments Blood Pressure 114/76 04/22/2022 11:48 AM COUNCIL MEMBER Pulse 105 04/22/2022 11:48 AM COUNCIL MEMBER Temperature 36.9 C (98.4 F) 04/22/2022 11:48 AM COUNCIL MEMBER Respiratory Rate 18 04/22/2022 11:48 AM COUNCIL MEMBER Oxygen Saturation 98% 04/22/2022 11:48 AM COUNCIL MEMBER Inhaled Oxygen Concentration - - Weight 95.3 kg (210 lb) 04/04/2023 1:50 PM COUNCIL MEMBER Height 162.6 cm (5' 4) 04/04/2023 1:50 PM COUNCIL MEMBER Body Mass Index 36.05 04/04/2023 1:50 PM COUNCIL MEMBER Plan of Treatment Health Maintenance Due Date [...] patient's age to complete this topic Insurance [employer] [facility] Care Teams Poultry Veterinarian Relationship Specialty Start Date End Date Kristyn Quiroz MD [address] [place] [address] [place] [address] PCP - General Family Medicine 04/22/22
--- OUTSIDE RECORDS SUMMARY | 2025-05-14 13:58 | XMS_ITS | Continuity of Care Document ---
Author Organization [place] - [facility] Primary [facility] [place] Address [address] [place] [address] Assessment No assessment recorded. Plan of Treatment Reminders Order Date Submit Date Provider Last Modified By Organization Details Last Modified Time Details Appointments None recorded. Lab CMP, serum or plasma [address] [facility] (Lab), [address] [place] [address], [address], 5 08:17:48 HbA1c (hemoglobi n A1c), blood [address] [facility] (Lab), [address] [place] [address], [address], 5 08:17:48 TSH, serum, reflex free T4 [address] [facility] (Lab), [address] [place] [address], [address], 5 08:17:48 CBC w/ auto diff [address] [facility] (Lab), [address] [place] [address], [address], 5 08:17:47 lipid panel, serum [address] [facility] (Lab), [address] [place] [address], [address], 5 08:17:48 estradiol, serum [address] [facility] (Lab), [address] [facility] [address], [place], [address], 08:17:48 progestero ne, serum [address] [facility] (Lab), [address] [facility] [address], [place], [address], 08:17:48 lh + FSH, serum [address] [facility] (Lab), [address] [facility] [address], [place], [address], 08:17:48 Referral None recorded. Procedures None recorded. Surgeries None recorded. Imaging MAMMO, screening, digital, bilateral - Please call patient to schedule. 2024 [facility], [address], [place], [address], 17:21:15 Medication Orders escitalopr am 20 mg tablet 2024 [facility] #[id number], [address] [place], [place], [id number], 09:19:24 esomeprazo le magnesium 40 mg capsule,de layed release 2024 [facility] #71051, [address], [place], [id number], 09:19:23 amlodipine 10 mg tablet 2024 [facility] #37378, [address], [place], [id number], 09:19:20 Zepbound 10 mg/0.5 mL subcutaneo us pen injector 2024 [facility] #51071, [address] [facility] [place], [place], [id number], 5 09:19:27 Patient TargetsNo targets recorded. Patient InstructionsNo instructions recorded. Reason for Referral None Reported. 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 Completed Not Available [facility] 3 09:13:29 Tinea pedis 4887103 Active Not Available [facility] 3 09:13:29 Female urinary stress incontine nce 27187163 Active Not Available [facility] 3 09:13:29 Increased liver function 13682192 Completed Not Available [facility] 3 09:13:29 Meningiti s 2529122 Active 2007 Not Available [facility] 3 09:13:29 Pain of right breast 8925434375 Active 2022 Kristyn Quiroz MD [address] [address], [place], [address] , [employer] [facility] [employer] 3 08:03:20 Essential hypertens ion 17380553 Active 2022 LIZ Maurer [address] [address], [place], [address] , [employer] [facility] [employer] 3 09:58:13 Pain of left breast 6613038264 Active 2022 Kristyn Quiroz MD [address] [address], [place], [address] , [employer] [facility] [employer] 3 09:37:15 Chest pain 41538658 Active 2022 Kristyn Quiroz MD [address], [place], [address] , [facility] [employer] [facility] 3 17:48:57 Influenza A virus present 68720694533 8 Active [address]Z Maurer [address], [place], [address] , [facility] [employer] [facility] [employer] [facility] 4 20:31:35 Cough 79006004 Active 2023 Kristyn Quiroz MD [address], [place], [address] , [facility] [employer] [facility] [employer] [facility] 4 13:37:24 Tachycard ia 5769586 Active 2023 LIZ Damon [address] [place], [address] , [facility] [employer] [facility] [employer] [facility] 4 09:16:56 Mixed anxiety and depressiv e disorder 026727830 Active 2023 LIZ Damon [address] [place], [address] , [facility] [employer] [facility] [employer] [facility] 4 10:05:49 Headache 82571738 Active 2023 LIZ Damon [address], [place], [address] , [facility] [employer] [facility] 4 10:07:54 COVID-19 840293650 Active 2023 LIZ Damon [address], [place], [address] , [facility] [employer] [facility] 4 14:24:02 Body mass index 30+ - obesity 000948841 Active 2024 LIZ Damon [address], [place], [address] , [facility] [employer] [facility] [employer] 10:12:00 Gastroeso phageal reflux disease without esophagit is 681461344 Active 2024 LIZ Damon [address] [place] [address], [facility] [address], [place], [address] , [facility] [employer] 09:16:38 Problem Notes None recorded. Procedures Surgical History Date Name Laterality Status Provider Name and Address Organization Details Recorded Time 02/14/20 24 hysterectomy completed PILLO Strauss [place] [employer] [facility] [employer] 03/13/2025 09:02:06 laparoscopic cholecystectomy completed Not Available [facility] 07/14/2022 09:11:23 ligation of bilateral fallopian tubes completed Not Available [facility] 07/14/2022 09:11:23 exploration of pelvis by laparotomy completed Not Available [facility] 07/14/2022 09:11:23 Imaging Results None recorded. Procedure Notes None recorded. Medical Equipment None Reported. Allergies No known drug allergies Medications Name Sig Start Date Stop Date Status Note LastModified by Organization Details LastModified Time Prescriptio n - Prior Authorizati on Request active Not Available Not Available N ot Available status covid-19/fl u a-b antigen tst TEST DIRECTED TODAY 01/03 completed Not Available Not Available Not Available id now influenza a & b 2 test kit TEST DIRECTED TODAY 02/16 completed Not Available Not Available Not Available cyclobenzap rine 10 mg tablet Take 1 tablet 3 times a day by oral route as needed. active Not Available Not Available No t Available cetirizine 10 mg tablet TAKE 1 TABLET BY MOUTH ONCE DAILY active Not Available Not Available No t Available azithromyci n 250 mg tablet TAKE 2 TABLETS BY MOUTH FOR 1 DAY THEN TAKE 1 TABLET BY MOUTH EVERY DAY FOR 4 DAYS 01/03 completed Not Available Not Available Not Available ibuprofen 800 mg tablet 05/19 completed Not Available Not Available Not Available tizanidine 4 mg tablet Take 1 tablet every 8 hours by oral route as needed. active Not Available Not Available No t Available hydrocodone 5 mg-acetamin ophen 325 mg tablet TAKE 1 TABLET BY MOUTH EVERY 6 HOURS 01/03 completed Not Available Not Available Not Available prednisone 20 mg tablet TAKE 1 TABLET BY MOUTH DAILY FOR 5 DAYS 01/03 completed Not Available Not Available Not Available atenolol 25 mg tablet TAKE 1/2 TABLET BY MOUTH EVERY DAY active Not Available Not Available No t Available phentermine 37.5 mg tablet TAKE 1 TABLET BY MOUTH ONCE DAILY 01/03 completed Not Available Not Available Not Available acetaminoph en 300 mg-codeine 30 mg tablet 05/19 completed Not Available Not Available Not Available amlodipine 5 mg tablet TAKE 1 TABLET BY MOUTH ONCE DAILY FOR 30 DAYS 02/16 completed Not Available Not Available Not Available ciprofloxac in 500 mg tablet 08/09 completed Not Available Not Available Not Available sulfamethox azole 800 mg-trimetho prim 160 mg tablet Take 1 tablet every 12 hours by oral route for 5 days. 08/09 completed Not Available Not Available Not Available tramadol 50 mg tablet Take 1 tablet every 6 hours by oral route. active Not Available Not Available No t Available ondansetron 8 mg disintegrat ing tablet DISSOLVE 1 TABLET ON THE TONGUE TWICE DAILY 01/03 completed Not Available Not Available Not Available oxycodone-a cetaminophe n 5 mg-325 mg tablet TAKE 1 TABLET BY MOUTH EVERY 4 HOURS NEEDED FOR PAIN 01/03 completed Not Available Not Available Not Available amoxicillin 875 mg tablet Take 1 tablet every 12 hours by oral route for 7 days. active Not Available Not Available No t Available estradiol 1 mg tablet TAKE 1 TABLET BY MOUTH EVERY DAY 01/03 completed Not Available Not Available Not Available tamsulosin 0.4 mg capsule Take 1 capsule every day by oral route for 30 days. 08/09 completed Not Available Not Available Not Available dicyclomine 20 mg tablet TK 1 T PO QID active Not Available Not Available No t Available amlodipine 10 mg tablet Take 1 tablet every day by oral route. 2024 active Not Available Not Available Not Avai lable benzonatate 100 mg capsule TAKE 1 CAPSULE BY MOUTH THREE TIMES DAILY NEEDED FOR COUGH 03/13 completed Not Available Not Available Not Available cephalexin 500 mg capsule 10/14 completed Not Available Not Available Not Available oseltamivir 75 mg capsule Take 1 capsule twice a day by oral route. 01/03 completed Not Available Not Available Not Available esomeprazol e magnesium 40 mg capsule,del ayed release Take 1 capsule every day by oral route. 2024 active Not Available Not Available Not Avai lable neomycin-po lymyxin-dex ameth 3.5 mg/mL-10,00 0 unit/mL-0.1 % eye drops 10/14 completed Not Available Not Available Not Available triamcinolo ne acetonide 0.1 % topical ointment Apply 1 applicati on twice a day by topical route as needed for 7 days. active Not Available Not Available No t Available promethazin e 25 mg tablet Take 1 tablet every 4 hours by oral route as needed. active Not Available Not Available No t Available indapamide 1.25 mg tablet TAKE 1 TABLET BY MOUTH EVERY DAY 01/03 completed Not Available Not Available Not Available gabapentin 300 mg capsule TAKE ONE CAPSULE BY MOUTH TWICE A DAY active Not Available Not Available No t Available diclofenac sodium 75 mg tablet,loni yed release Take 1 tablet twice a day by oral route as needed. active Not Available Not Available No t Available cephalexin 500 mg tablet Take 1 tablet twice a day by oral route for 7 days. 10/12 completed Not Available Not Available Not Available ibuprofen 600 mg tablet TAKE 1 TABLET EVERY 4 TO 6 HOURS NEEDED 02/25 completed Not Available Not Available Not Available methylpredn isolone 4 mg tablets in a dose pack FOLLOW PACKAGE DIRECTION S 02/16 completed Not Available Not Available Not Available losartan 50 mg-hydrochl orothiazide 12.5 mg tablet TAKE 1 TABLET BY MOUTH EVERY DAY 01/03 completed Not Available Not Available Not Available ketoconazol e 2 % topical cream apply to feet bid x 4-6 weeks prn 02/25 completed Not Available Not Available Not Available oxybutynin chloride 5 mg tablet Take 1 tablet twice a day by oral route for 30 days. active Not Available Not Available No t Available ondansetron 4 mg disintegrat ing tablet 08/09 completed Not Available Not Available Not Available fluticasone propionate 50 mcg/actuati on nasal spray,suspe nsion 03/09 completed Not Available Not Available Not Available naproxen 500 mg tablet 10/14 completed Not Available Not Available Not Available amoxicillin 875 mg-potassiu m clavulanate 125 mg tablet TAKE 1 TABLET BY MOUTH TWICE DAILY FOR 10 DAYS 01/03 completed Not Available Not Available Not Available esomeprazol e magnesium 20 mg capsule,del ayed release Take 1 capsule every day by oral route. active Not Available Not Available No t Available escitalopra m 10 mg tablet TAKE 1 TABLET BY MOUTH EVERY DAY 03/13 completed Not Available Not Available Not Available escitalopra m 20 mg tablet Take 1 tablet every day by oral route. 2024 active Not Available Not Available Not Avai lable cyclobenzap rine 5 mg tablet 1 po qhs prn active Not Available Not Available No t Available bupropion HCl XL 150 mg 24 hr tablet, extended release active Not Available Not Available Not Available ID NOW COVID-19 Test Kit TEST DIRECTED TODAY 02/16 completed Not Available Not Available Not Available Paxlovid 300 mg (150 mg x 2)-100 mg tablets in a dose pack TK 2 NIRMATREL VIR TS AND 1 RITONAVIR T TOGETHER PO TWICE DAILY X 5 DAYS 03/13 completed Not Available Not Available Not Available Zepbound 10 mg/0.5 mL subcutaneou s pen injector Inject by subcutane ous route for 28 days. active Not Available Not Available No t Available Zepbound 5 mg/0.5 mL subcutaneou s pen injector ADMINISTE R 5 MG UNDER THE SKIN EVERY WEEK 03/13 completed Not Available Not Available Not Available Zepbound 2.5 mg/0.5 mL subcutaneou s pen injector ADMINISTE R 2.5 MG UNDER THE SKIN EVERY WEEK 03/13 completed Not Available Not Available Not Available Zepbound 15 mg/0.5 mL subcutaneou s pen injector Inject 0.5 mL every week by subcutane ous route. 2024 active Not Available Not Available Not Avai lable Zepbound 7.5 mg/0.5 mL subcutaneou s pen injector ADMINISTE R 7.5 MG UNDER THE SKIN EVERY WEEK 03/13 completed Not Available Not Available Not Available Vitals Date Recorded Body height Body mass index (BMI) Body weight Body temperature Heart rate Oxygen saturation Systolic And Diastolic Provider Name and Address Organization Details Last Updated DateTime 162.56 cm 36.4 kg/m2 33297.5 8 g 97.3 [degF] 88 /min 97 % 120/72 mm[Hg] Emilio Shell, RMA [place] [facility] [place] [employer] [facility] 09:06:57 Social History Question Answer Notes LastModified by Organizat ion Details LastModified Time Tobacco Smoking Status Current Every Day Smoker PILLO Strauss [place] [facility] [place] [employer] [facility] 03/13/2025 08:59:46 Do You Have An Advance Directive? No Information not available 03/13/2025 What Is Your Level Of Caffeine Consumption? Occasional Information not available 03/13/2025 In The 14 Days Before Symptom Onset, Have You Had Close Contact With A Laboratory-confi rmed COVID-19 While That Case Was Ill? No Information not available 03/13/2025 In The 14 Days Before Symptom Onset, Have You Had Close Contact With A Person Who Is Under Investigation For COVID-19 While That Person Was Ill? No Information not available 03/13/2025 What Type Of Diet Are You Following? REGULAR Information not available 03/13/2025 Which Illicit Or Recreational Drugs Have You Used? Marijuana Information not available 03/13/2025 Do You Use Insect Repellent Routinely? Yes Information not available 03/13/2025 Where Do You Live? SingleLevelHouse Information not available 03/13/2025 Do You Have A Medical Power Of Vp Hr Diversity? No Information not available 03/13/2025 What Was The Date Of Your Most Recent Tobacco Screening? 03/13/2025 Information not available 03/13/2025 How Many Children Do You Have? 2 Information not available 03/13/2025 Do You Have Any Pets? Yes Information not available 03/13/2025 What Is Your Relationship Status? Information not available 03/13/2025 Do You Use Your Seat Belt Or Car Seat Routinely? Yes Information not available 03/13/2025 Do You Have Smoke And Carbon Monoxide Detectors In Your Home? Yes Information not available 03/13/2025 At What Age Did You Start Smoking Tobacco? 14 Information not available 03/13/2025 Are There Any Smokers In Your House? No Information not available 03/13/2025 How Much Tobacco Do You Smoke? 0.25 PPD Information not available 03/13/2025 Do You Participate In Social Media? Yes Information not available 03/13/2025 Do You Use Sunscreen Routinely? Yes Information not available 03/13/2025 Have You Recently Traveled Abroad? No Information not available 03/13/2025 Have You Used IV Drugs? No Information not available 03/13/2025 Do You Have Any Dietary Restrictions? No Information not available 03/13/2025 Sex: Unknown Functional Status Question Answer Note LastModified by Organizat ion Details LastModified Time Do you use any illicit or recreational drugs? Yes occ marijuana Information not available 03/13/2025 Do you or have you ever used any other forms of tobacco or nicotine? Yes Information not available 03/13/2025 What is your level of alcohol consumption? Occasional Information not available 03/13/2025 Do you or have you ever used smokeless tobacco? Never used smokeless tobacco Information not available 03/13/2025 Are you currently employed? Yes Information not available 03/13/2025 Do you or have you ever used e-cigarettes or vape? Current user of electronic cigarettes Information not available 03/13/2025 Mental Status Question Answer Note LastModified by Organization D etails LastModified Time Do you feel stressed (tense, restless, nervous, or anxious, or unable to sleep at night)? [id number] Information not available 03/13/2025 Family History Relationship Description Onset Age of this Age Resolved Age Notes LastModified by Organization Details LastModified Time Maternal Aunt Malignant neoplasm of breast MIGRATION.855 [id number] Not available 07/14/2022 09:11:23 Father Primary malignant neoplasm of urethra MIGRATION.484 [id number] Not available 07/14/2022 09:11:23 Sister Malignant neoplasm of cervix uteri small blue cell MIGRATION.670 [id number] Not available 07/14/2022 09:11:23 Maternal Uncle Malignant neoplasm of colon MIGRATION.971 [id number] Not available 07/14/2022 09:11:23 Medical History No medical history recorded. Gynecological History Statement/Question Response Dislike of Light during Menstrual Headac he N Current Control Method Hysterectom y Date of LMP 04/13/2021 Breast Problems NO Obstetrics History GPAL:G 2 P 0 0 0 2 Type Value Living 2 Total 2 Immunizations Vaccine Type Date Status Note Provider Nam e and Address Organization Details Recorded Time Influenza, split virus, trivalent, PF 5 completed Emilio Shell, RMA null, [place] [facility] [place] [facility] 03/13/2025 09:46:31 OPV, trivalent 3 completed Not Available [facility] 03/13/2025 08:52:15 DTP 3 completed Not Available [facility] 03/13/2025 08:52:15 DTP 3 completed Not Available [facility] 03/13/2025 08:52:15 OPV, trivalent 3 completed Not Available [facility] 03/13/2025 08:52:15 OPV, trivalent 4 completed Not Available [facility] 03/13/2025 08:52:15 DTP 4 completed Not Available [facility] 03/13/2025 08:52:15 MMR 5 completed Not Available [facility] 03/13/2025 08:52:15 DTP 5 completed Not Available [facility] 03/13/2025 08:52:15 OPV, trivalent 5 completed Not Available [facility] 03/13/2025 08:52:15 DTP 8 completed Not Available [facility] 03/13/2025 08:52:15 OPV, trivalent 9 completed Not Available [facility] 03/13/2025 08:52:15 MMR 3 completed Not Available [facility] 03/13/2025 08:52:15 Td (adult), 2 Lf tetanus toxoid, preservative free, adsorbed 8 completed Not Available [facility] 03/13/2025 08:52:15 Influenza, MDCK, trivalent, PF 4 completed Not Available [facility] 03/13/2025 08:52:15 Influenza, split virus, quadrivalent, PF 3 completed Poonam Fuentes RN [facility], [facility] [employer] [facility] 02/16/2023 10:21:39 Influenza, split virus, quadrivalent, PF 1 completed Not Available [facility] 07/14/2022 09:14:55 Influenza, split virus, quadrivalent, preservative 6 completed Not Available [facility] 07/14/2022 09:14:55 Influenza, split virus, quadrivalent, PF 5 completed Not Available [facility] 07/14/2022 09:14:55 Tdap 4 completed Not Available [facility] 07/14/2022 09:14:55 Past Encounters Encounter ID Performer Location Encounter Start Date Encounter Closed Date Diagnosis/Indication Diagnosis SNOMED-CT Code Diagnosis ICD10 Code Diagnosis IMO Codes Diagnosis Note [id number] LIZ Damon [facility] Primary Care [address] [place] [address] 03/13/2025 08:50:24 03/13/2025 09:36:09 Adult health examination 296847885 Z00.00 Z13.29 Z13.1 [id number] Discussed medication compliance and routine follow up.Discuss ed healthy diet and routine exercise.Dimitry byrdwed vaccine records and made recommenda tions as needed.Enc ouraged annual eye and dental exams, as well as twice yearly dental cleanings. Will check screening labs as listed below. Mixed anxi ety and depressive disorder 899588527 F41.8 ANT-7 (07/06).Tara celaya is doing well on current medication and has no concerns at this time. Essential hypertension 62359424 I10 120/72Will refill meds and check labs as listed below. Body mass index 30+ - obesity 156383741 E66.9 Z78.9 Weight: 212 poundsBMI: 36.4 Gastroesop hageal reflux disease without esophagitis 031471009 K21.9 033048 Will start medication as listed below. Patient has been taking Nexium 20mg OTC and it has not helped with symptoms. Influenza vaccination given 9234564440 9109 Z23 07492985 Screening mammography 24 688725 Z12.31 81145136 History of hysterectomy 504291976 Z90.710 474733 Health Concerns Section Related Observation LastModified by Organization Detai ls LastModified Time None Recorded Concern Status LastModified by Organization Details LastModified Time None Recorded Payers Encounter Date Sequence Insurance Name Policy Number Policy Case Covered Member ID Case Member ID Guarantor Name 03/13/2025 1 KATHRYN [id number] Asha Guerrero [id number] Asha Spencer Notes Date Note Type Note Provider Name and Address Organization Details Recorded Time 03/13/2025 text/html Patient is a 44 year old female that presents to the office for annual wellness. labs- orderedWWE- hysterectomyMam mogram- orderedColonosc opy- age 47Flu- orderedCovid- awareTdap- UTD NAVID DamonP-C [address] [facility], [facility] [address], [place], [address], [place] [employer] 03/13/2025 09:27:18 OBGyn Episode No OBEpisode recorded.
--- OUTSIDE RECORDS SUMMARY | 2025-05-14 13:58 | XMS_ITS | Data Portability ---
Author Organization [facility] Address [address] [place] [address] [place] [address] Assessment No assessment recorded. Plan of Treatment Reminders Order Date Submit Date Provider Last Modified By Organization Details Last Modified Time Details Appointments None recorded. Lab None recorded. Referral None recorded. Procedures None recorded. Surgeries total hysterectom y, laparoscopi c, with bilateral salpingo-oo phorectomy (SURG) 2022 023 [facility], [facility] [address], [place], [address], 12:36:30 Imaging US, pelvis [address], [address], [address], [place], [address], 3 22:35:39 US, transvagina l 2022 [address], [address], [place], [address], 3 22:35:39 Medication Orders estradiol 1 mg tablet [address] [id number], [address] [facility], [place], [place], [id number], 17:34:52 hydrocodone 5 mg-acetamin ophen 325 mg tablet 2022 023 [facility] #[id number], [address] [facility], [place], [place], [id number], 17:32:49 ondansetron 8 mg disintegrat ing tablet 2022 023 [facility] #[id number], [address] [facility], [place], [place], [id number], 17:32:46 Patient TargetsNo targets recorded. Patient InstructionsNo instructions recorded. Reason for Referral None Reported. Results Created Date Observation Date Name Description Value Unit Range Abnormal Flag Note LastModifiedBy Organization Detail LastModifiedTime 02/05/2002/04/2023 BHCG, QUANT ITATI VE B-HCG <0.2 mIU/m L This assay was perfo rmed using [employer] n reage nts and test kits. Value s obtai boom with other assay metho ds or kits canno t be used inter [facility] . Refer ence Range s: Non-p regna nt, preme nopau brissa women : 0.0-5 .3 mIU/m L Postm enopa usal women : 0.0-7 .0 mIU/m L Pyhllis l Pregn nanda: Gesta jimi l Age bHCG Conc. - mIU/m L 3 Weeks 5.8 - 71.7 4 Weeks 9.5 - 750 5 Weeks 217-7 138 6 Weeks 158 - 31,79 5 7 Weeks 3,697 - 162,5 63 8 Weeks 32,06 5 - 149,5 71 9 Weeks 63,80 3 - 151,4 10 10 Weeks 46,50 9 - 186,9 77 12 Weeks 27,83 2 - 210,6 12 14 Weeks 13,95 0 - 62,53 0 15 Weeks 12,03 9 - 70,97 1 16 Weeks 9,040 - 56,45 1 17 Weeks 8,175 - 55,86 8 18 Weeks 8,099 - 58,17 6 Not Available [facility] (Lab) [address], [place], [address], 02/14/2023 16:49:07 02/05/20 23 02/04/2023 PROGE STERO NE progesterone 0.13 NG/mL This assay was perfo rmed using [employer] reage nts and test kits. Value s obtai boom with other assay metho ds or kits canno t be used inter [facility] . Femal e Proge stero ne Range s: Folli cular phase 0.06- 0.89 ng/mL Ovula tion phase 0.12- 12.00 ng/mL Lutea l phase 1.83- 23.90 ng/mL Postm enopa usal< 0.05- 0.13 ng/mL Healt hy Pregn ant Women 1st Trime ster1 1.0-4 4.30 2nd Trime ster2 5.40- 83.30 3rd Trime ster5 8.70- 214.0 0 Not Available [facility] (Lab) [address] [place], [address], 02/14/2023 16:49:08 02/05/20 23 02/04/2023 PROLA CTIN prolactin, total 13.20 NG/mL 4.79-2 3.30 This assay was perfo rmed using [employer] n reage nts and test kits. Value s obtai boom with other assay metho ds or kits canno t be used inter [facility] . Not Available [facility] (Lab) [address] [place], [address], 02/14/2023 16:49:08 02/05/20 23 02/04/2023 FSH, LH, ESTRA DIOL estradiol 18.9 pg/mL This assay was perfo rmed using [employer] reage nts and test kits. Value s obtai boom with other assay metho ds or kits canno t be used inter [facility] . Femal e Estra diol Range s: Folli cular phase 12.4- 233 pg/mL Ovula tion phase 41.0- 398 pg/mL Lutea l phase 22.3- 341 pg/mL Postm enopa usal< 5-138 pg/mL Healt hy Pregn ant Women 1st Trime ster1 54-32 43 pg/mL 2nd Trime ster1 561-2 1280 pg/mL 3rd Trime ster8 525-> 04583 pg/mL Not Available [facility] (Lab) [address], [place], [address], 02/14/2023 16:49:09 02/05/20 23 02/04/2023 FSH, LH, ESTRA DIOL FSH 13.6 mIU/m L This assay was perfo rmed using [employer] n reage nts and test kits. Value s obtai boom with other assay metho ds or kits canno t be used inter [facility] . Femal es Folli cular : 3.5-1 2.5 mIU/m L Ovula tion: 4.7-2 1.5 mIU/m L Lutea l: 1.7-7 .7 mIU/m L Postm enopa use: 25.8- 134.8 mIU/m L Not Available [facility] (Lab) [address] [facility], [place], [address], 02/14/2023 16:49:09 02/05/20 23 02/04/2023 FSH, LH, ESTRA DIOL LH 11.3 mIU/m L This assay was perfo rmed using [employer] n reage nts and test kits. Value s obtai boom with other assay metho ds or kits canno t be used inter [facility] . Femal es Mid-F ollic ular: 2.4-1 2.6 mIU/m L Mid-C ycle: 14.0- 95.6 mIU/m L Mid-L uteal : 1.0-1 1.4 mIU/m L Postm enopa use: 7.7-5 8.5 mIU/m L Not Available [facility] (Lab) [address], [place], [address], 02/14/2023 16:49:09 02/05/20 23 02/04/2023 HEMOG LOBIN A1C hemoglobin A1C 5.3 % 0-5.6 The Ameri can Diabe roberta Assoc iatio n recom mends that a prima ry goal of thera py shoul d be a HBA1C of < 7% and that physi cians shoul d reeva luate the treat ment regim en in patie nts with HBA1C value s consi stent ly > 8%. <5.7% Phyllis l 5.7 - 6.4% Incre ased risk for diabe roberta >=6.5 % Diagn ostic of diabe roberta <7.0% Goal of thera py >8.0% Actio n sugge sted Not Available [facility] (Lab) [address] [facility], [place], [address], 02/14/2023 16:49:09 02/05/20 23 02/04/2023 TSH, REFLE X FREE T4 TSH 3.96 uIU/m L 0.30-5 .33 Not Available [facility] (Lab) [address] [place], [address], 02/14/2023 16:49:10 02/05/20 23 02/04/2023 17-OH PROGE STERO NE 17-hydroxypr ogesterone, lc/MS/MS 12 NG/dL Adult Femal e Refer ence Range s for 17-Hy droxy proge stero ne: Pre-M enopa usal Mid Folli cular : 23-10 2 ng/dL Pre-M enopa usal Surge : 67-34 9 ng/dL Pre-M enopa usal Mid Lutea l: 139-4 31 ng/dL Postm enopa usal Phase : < or = 45 ng/dL Pregn nanda: First Trime ster: 78-45 7 ng/dL Secon d Trime ster: 90-35 7 ng/dL Third Trime ster: 144-5 78 ng/dL This test was devel oped and its chavez tical perfo rmanc e david cteri stics have been deter mined by [facility] [employer] tranivania . It has not been clear ed or appro tiffanie by FDA. This assay has been valid ated pursu ant to the CLIA regul ation s and is used for clini jose miguel purpo ses. Perfo rming Organ izati on [facility] n: Site ID: [id number] Name: [facility] yvonne [address] , Addre ss: [id number] [address] [place] [address] Dire tor: Danyell baca MD,Ph D,CHUCKY Not Available [facility] (Lab) [address] [facility], [place], [address], 02/14/2023 16:49:10 02/05/20 23 02/04/2023 TESTO STERO NE, FREE( DIALY SIS) AND TOTAL (LC/M S/MS) testosterone , total 14 NG/dL 2-45 For addit ional [facility] e refer to http: //[facility] ирина fregoso.que stdia gnost ics.c om/fa q/Tot alTes toste Cate CMSMS (This link is being provi ded for connorr alkaallison nal/e ducat ional purpo ses only. ) Not Available [facility] (Lab) [address] [facility], [place], [address], 02/14/2023 16:49:11 02/05/20 23 02/04/2023 TESTO STERO NE, FREE( DIALY SIS) AND TOTAL (LC/M S/MS) testosterone , free 2.0 pg/mL 0.1-6. 4 This test was devel oped and its chavez tical perfo rmanc e david cteri stics have been deter mined by [facility] [place] [employer] [employer] . It has not been clear ed or appro tiffanie by FDA. This assay has been valid ated pursu ant to the CLIA regul ation s and is used for clini jose miguel purpo ses. Perfo rming Organ izati on [facility] n: Site ID: EZ Name: [facility] an [place] [address] , Addre ss: [id number] [address] [facility] [place] [address] Direc tor: Danyell baca MD,Ph D,CHUCKY Not Available [facility] (Lab) [address], [place], [address], 02/14/2023 16:49:11 02/08/20 23 02/07/2023 US, pelvi s No observ ation record ed. [email or web address] [facility] [address], [place], [address], 02/07/2023 16:58:14 02/08/20 23 02/07/2023 US, trans vagin al No observ ation record ed. [email or web address] [facility] [address], [place], [address], 02/07/2023 16:58:01 02/08/20 23 02/07/2023 US, pelvi s No observ ation record ed. SHARYN Bingham [address] [place] [address], [place], [address], 02/15/2023 11:31:16 Result Notes None recorded. Procedures Surgical History Date Name Laterality Status Provider Name and Address Organization Details Recorded Time 023 TOTAL HYSTERECTOMY, LAPAROSCOPIC, WITH BILATERAL SALPINGO-OOPHORECT SELAM (SURG) completed Cami Estevez [facility] 05/31/2023 18:06:35 023 Date of Last Mammogram completed Sujey [facility] 09/06/2022 09:54:41 021 Date of Last Pap Smear completed Sujey [facility] 09/06/2022 09:55:18 020 LAPAROSCOPY, DIAGNOSTIC (SURG) completed Jayne Aguila [facility] 10/27/2020 12:50:35 008 Tubal Ligation completed Amanda [facility] 02/07/2020 12:47:58 003 Cholecystectomy completed Amanda Kline [facility] 02/07/2020 12:47:48 Tubal Ligation [facility] 02/04/2023 14:29:15 Cholecystectomy completed Nikky Horvath [facility] 02/04/2023 14:29:15 Imaging Results None recorded. Procedure Notes None recorded. Medical Equipment None Reported. Allergies No known drug allergies Medications Name Sig Start Date Stop Date Status Note LastModified by Organization Details LastModified Time id now influenza a & b 2 test kit TEST DIRECTED TODAY 08/26 completed Not Available Not Available Not Available azithromyci n 250 mg tablet TAKE 2 TABLET BY MOUTH ON DAY 1 THEN 1 TABLET BY MOUTH EVERY DAY FOR 4 DAYS 08/26 completed Not Available Not Available Not Available hydrocodone 5 mg-acetamin ophen 325 mg tablet TAKE 1 TABLET BY MOUTH EVERY 6 HOURS active Not Available Not Available No t Available phentermine 37.5 mg tablet TAKE 1 TABLET BY MOUTH ONCE DAILY 02/04 completed Not Available Not Available Not Available amlodipine 5 mg tablet TAKE 1 TABLET BY MOUTH ONCE DAILY FOR 30 DAYS active Not Available Not Available No t Available ondansetron 8 mg disintegrat ing tablet DISSOLVE 1 TABLET ON THE TONGUE TWICE DAILY active Not Available Not Available No t Available oxycodone-a cetaminophe n 5 mg-325 mg tablet TAKE 1 TABLET BY MOUTH EVERY 4 HOURS NEEDED FOR PAIN active Not Available Not Available No t Available amoxicillin 875 mg tablet 02/07 completed Not Available Not Available Not Available estradiol 1 mg tablet TAKE 1 TABLET BY MOUTH EVERY DAY active Not Available Not Available No t Available dicyclomine 20 mg tablet 08/26 completed Not Available Not Available Not Available amlodipine 10 mg tablet TAKE 1 TABLET BY MOUTH EVERY DAY active Not Available Not Available No t Available indapamide 1.25 mg tablet TAKE 1 TABLET BY MOUTH EVERY DAY active Not Available Not Available No t Available diclofenac sodium 75 mg tablet,loni yed release 02/07 completed Not Available Not Available Not Available methylpredn isolone 4 mg tablets in a dose pack FOLLOW PACKAGE DIRECTION S 08/26 completed Not Available Not Available Not Available losartan 50 mg-hydrochl orothiazide 12.5 mg tablet TAKE 1 TABLET BY MOUTH EVERY DAY active Not Available Not Available No t Available cyclobenzap rine 5 mg tablet 08/26 completed Not Available Not Available Not Available ID NOW COVID-19 Test Kit TEST DIRECTED TODAY 08/26 completed Not Available Not Available Not Available Vitals Date Recorded Body height Body mass index (BMI) Body weight Systolic And Diastolic Provider Name and Address Organization Details Last Updated DateTime 02/21/2023 162.56 cm 38.6 kg/m2 489616.28 g 151/81 mm[Hg] [facility] 02/21/2023 17:01:54 Date Recorded Body height Body mass index (BMI) Body weight Systolic And Diastolic Provider Name and Address Organization Details Last Updated DateTime 03/10/2023 162.56 cm 38.8 kg/m2 259200.88 g 126/80 mm[Hg] [facility] 03/10/2023 09:44:56 Date Recorded Body height Body mass index (BMI) Body weight Systolic And Diastolic Provider Name and Address Organization Details Last Updated DateTime 03/23/2023 162.56 cm 39 kg/m2 933313.47 g 137/85 mm[Hg] [facility] 03/23/2023 17:08:29 Social History Question Answer Notes LastModified by Organizat ion Details LastModified Time How Many Years Have You Consumed Alcohol? 20 Information not available 02/04/2023 Are You Blind Or Do You Have Difficulty Seeing? No Information n ot available 09/06/2022 What Is Your Level Of Caffeine Consumption? Occasional Information not available 09/06/2022 How Much Tobacco Do You Chew? None Information not available 09/06/2022 In The 14 Days Before Symptom Onset, Have You Had Close Contact With A Laboratory-confirm ed COVID-19 While That Case Was Ill? No Information n ot available 09/06/2022 In The 14 Days Before Symptom Onset, Have You Had Close Contact With A Person Who Is Under Investigation For COVID-19 While That Person Was Ill? No Information not available 09/06/2022 Have You Been To An Area Known To Be High Risk For COVID-19? No Information not available 09/06/2022 Are You Deaf Or Do You Have Serious Difficulty Hearing? No Information not available 09/06/2022 What Type Of Diet Are You Following? REGULAR Information n ot available 09/06/2022 What Is The Highest Grade Or Level Of School You Have Completed Or The Highest Degree You Have Received? [id number] Information not available 09/06/2022 Are There Any Guns Present In Your Home? Yes Information not available 09/06/2022 Do You Use Protection During Sex? No Information not available 09/06/2022 Do You Use Your Seat Belt Or Car Seat Routinely? Yes Information not available 09/06/2022 Do You Have Smoke And Carbon Monoxide Detectors In Your Home? Yes Information not available 09/06/2022 At What Age Did You Start Smoking Tobacco? 18 Information not available 02/04/2023 How Much Tobacco Do You Smoke? 1 PPD Information not available 09/06/2022 Do You Use Sunscreen Routinely? Yes Information not available 09/06/2022 How Many Years Have You Smoked Tobacco? 20 Information not available 09/06/2022 Have You Used IV Drugs? No Information not available 09/06/2022 Sex: Unknown Functional Status Question Answer Note LastModified by Organizat ion Details LastModified Time Do you use any illicit or recreational drugs? Yes Information not available 09/06/2022 What is your level of alcohol consumption? Occasional Information not available 09/06/2022 Are you able to walk independently without assistance or assistive devices? 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 Current user of electronic cigarettes [email or web address] Information not available 04/21/2023 What is your exercise level? Occasional Information not available 09/06/2022 Mental Status Question Answer Note LastModified by Organization D etails LastModified Time Do you feel stressed (tense, restless, nervous, or anxious, or unable to sleep at night)? [id number] Information not available 09/06/2022 Family History Relationship Description Onset Age of this Age Resolved Age Notes LastModified by Organization Details LastModified Time Father Heart disease [email or web address] Not available 2019 12:45:48 Father Diabetes mellitus [email or web address] Not available 2019 12:45:58 Father Hypercholest erolemia [email or web address] Not available 2019 12:46:13 Father Hypertensive disorder [email or web address] Not available 2019 12:46:28 Father Malignant neoplasm of urinary bladder [email or web address] Not available 04/21/2023 10:01:24 Mother Hypertensive disorder [email or web address] Not available 2019 12:46:28 Mother Cyst of ovary [email or web address] Not available 04/21/2023 10:01:24 Mother Disorder of thyroid gland [email or web address] Not available 2019 12:47:15 Sister Cyst of ovary [email or web address] Not available 04/21/2023 10:01:24 Sister Disorder of thyroid gland [email or web address] Not available 2019 12:47:15 Maternal Aunt Malignant neoplasm of breast [email or web address] Not available 2019 12:59:26 Maternal Aunt Uterine prolapse [email or web address] Not available 04/21/2023 10:01:24 Maternal Grandmother Diabetes mellitus [email or web address] Not available 2019 12:59:55 Paternal Aunt Diabetes mellitus [email or web address] Not available 2019 13:00:02 Paternal Uncle Diabetes mellitus [email or web address] Not available 2019 13:00:05 Medical History No medical history recorded. Gynecological History Statement/Question Response Date of Last Mammogram 07/29/2022 Date of LMP 02/02/2023 N Was last menstrual period normal Y HPV Vaccine N Duration of Flow (days) 5 11 Current Control Method Hysterectom y Age at First Child 20 Are cycles usually normal Y Frequency of Cycle (Q days) 30 Sexually Active? Y Age of first menstrual cycle 13 Date of Last Pap Smear 03/16/2021 Sexual Problems? N LMP Definite N Obstetrics History GPAL:G 3 P 0 0 1 2 Type Value Spontaneous 1 Living 2 Total 3 Past Encounters Encounter ID Performer Location Encounter Start Date Encounter Closed Date Diagnosis/Indication Diagnosis SNOMED-CT Code Diagnosis ICD10 Code Diagnosis IMO Codes Diagnosis Note [id number] Kris Purvis MD [facility] [address],[facility] [place] [address] 02/07/2020 12:26:40 02/07/2020 13:25:43 Pain in pelvis 07264764 R10.2 This patient is a 39-year-ol d female presents for pelvic pain. She was seen in the ER. A CT of the abdomen pelvis was obtained. A small renal calculus was seen on the right kidney. Otherwise it was normal with the exception of a hiatal hernia -Mild. She is at approximat abrbara midcycle. The ovaries should be evaluated. We agreed to obtain pelvic ultrasound and me tomorrow. We will consider treatment options and diagnosis at that time. [id number] Kris Purvis MD [facility] [address],[place] [address] 02/08/2020 12:03:59 02/08/2020 12:29:50 Pain in pelvis [id number] R10.2 This patient is a 39-year-ol d female presents for pelvic pain. She was seen in the ER. A CT of the abdomen pelvis was obtained. A small renal calculus was seen on the right kidney. Otherwise it was normal with the exception of a hiatal hernia -Mild. She is at approximat barbara midcycle. The ovaries should be evaluated. We agreed to obtain pelvic ultrasound and me tomorrow. We will consider treatment options and diagnosis at that time. [id number] Kris Purvis MD [facility] [address],[facility] [place] [address] 02/08/2020 12:04:50 02/08/2020 14:27:03 Pain in pelvis 09310334 R10.2 This patient is a 39-year-ol d female with severe pelvic pain. We have agreed to perform diagnostic laparoscop y. She understand s the risks, benefits, and alternativ es. She has completed the informed consent process and is ready to [id number] Kris Purvis MD [facility] [address],[place] [address] 02/14/2020 12:31:56 02/14/2020 12:34:43 [id number] Kris Purvis MD [facility] [address],[place] [address] 02/21/2020 09:54:04 02/21/2020 16:42:44 Postoperative care [id number] Z48.89 This patient is a 39-year-ol d female who presents forpostopf ollow-up. She is 1 weekpostop from a diagnostic laparoscop y with ovarian cystectomy and reduction of hemoperito neum. The patient is doing very well. Her incisions are clean dry and intact. She was informed of her pathology report. We discussed the findings from the surgery. she is recovering normally will follow up as needed. [id number] Meenakshi Romeo , [facility] [address],[place] [address] 08/26/2022 13:21:08 08/26/2022 13:48:52 Pain of right breast [id number] N64.4 Today we agreed to repeat the breast US wtih possible diag mammo if needed.UPd ated blood work ordered. will contact with results. Time spent in visit is a total of 15 mins with at least 50% of visit consisting of counseling and review of plan of care. [id number] Meenakshi Romeo , [facility] [address],[place] [address] 09/06/2022 09:37:24 09/06/2022 10:10:12 Gynecologic examination [id number] Z01.419 Take Calcium with Vitamin D 1200mg daily if not receiving in daily diet. It is strongly advised to have an annual flu shot and up can obtain at most pharmacies . If you have not had a TDap shot in the last 10 years you should obtain one as well. Discussed with patient & provided with informatio n regarding Gardisil vaccine to prevent the 4 strains for HPV that cause cervical cancer if under age 26. Encourage safe sexual practices, to use condoms and limit partners if not already in a monogamous relationsh ip. Do monthly self breast exams. Have mammogram yearly or every other year depending on family history. BRCA testing is now available for patients with strong genetic history of female cancer. If interested contact the office. Engage in daily exercise of low impact aerobic exercise 45-60 minutes 4-5 times weekly. Avoid tobacco and illicit drugs as well as using moderation with alcohol intake less than 1-2 8 oz beverages daily. This lifestyle behavior pattern will lead to less health conditions and longer life span. If BMI greater than 25 weight watchers or dietary consult advised. Patient received above instructio ns, and questions have been answered. If you have any questions please call or respond to this email. Patient was made aware of the patient portal and may obtain a paper copy of today's plan if desired. Pap/hpv sentSTD Screen declinedGe netic Screen discussedC olon Screen PCPDexa Screen [facility] UTD PCP [id number] Meenakshi Romeo [facility] [address],[facility] [place] [address] 02/04/2023 14:12:20 02/12/2023 18:31:30 Abnormal uterine bleeding [id number] 9100 N93.9 The patient and I discussed the various causes of abnormal uterine bleeding, including polyps, fibroids, hyperplasi a, atypia, anovulatio n, etc. We reviewed the typical evaluation with labs, pelvic US and possible endometria l biopsy. Briefly discussed the options available for treatment (depending on the results of evaluation ) such as hormonal treatment (OCPs, progestins ), Mirena, endometria l ablation, and surgery. We spent more than 30 minutes face to face. [id number] Kris Purvis MD [facility] [address] [address] 02/07/2023 16:12:56 02/07/2023 17:00:53 Abnormal uterine bleeding [id number] 9100 N93.9 [id number] Kris Purvis MD [facility] [address] [address] 02/21/2023 16:40:47 02/21/2023 17:36:20 Dysmenorrhea [id number] N94.6 Menorrhagia [id number] N9 2.0 this patient is a 42-year-ol d female with uterine fibroids, menorrhagi a, dysmenorrh ea, pelvic pain. She is had surgery for the pelvic pain. She continues to have pain. Her bleeding is very heavy. She is accidents. It is excessive. She gets blood on her bedding and clothing. She is had to leave work. We spent 40 minutes face-to-fa ce. More than 50% was counseling we talked about treatment options. We agreed to definitive surgical treatment. We made a decision to perform surgery. Talked about the details of that surgery. We also talked about risk. Talked about technical matters relating to the surgery and recovery. She will return for preoperati ve visit. We are going to perform [facility] BSO [id number] Kris Purvis MD [employer] [address] [address] 03/10/2023 09:31:58 03/11/2023 03:15:49 Menorrhagia [id number] N92.0 this patient is a 42-year-ol d female with uterine fibroids, menorrhagi a, dysmenorrh ea, pelvic pain. we have agreed to perform total laparoscop ic hysterecto my and bilateral salpingo-o ophorectom y. she understand s the risks, benefits, and alternativ es. She is completed the informed consent process and is ready to proceed. [id number] Kris Purvis MD [employer] [facility] [address] [address] 03/23/2023 17:00:59 03/23/2023 17:48:37 Menopausal symptom [id number] N95.1 Postoperative care [id number] Z48.89 female Patient presents for postop follow-up. She is 1 week postop from a total laparoscop ic hysterecto my bilateral salpingect selam+oophor ectomy. She has no complaints . Her incisions are clean dry and intact. She is recovering normally. She will follow-up as needed. [id number] Kris Purvis MD [employer] [address] [address] 04/21/2023 10:01:23 04/21/2023 11:28:33 Health Concerns Section Related Observation LastModified by Organization Detai ls LastModified Time None Recorded Concern Status LastModified by Organization Details LastModified Time None Recorded Advance Directives Directive None Recorded Payers Insurance Date Sequence Insurance Name Policy Number Policy Case Covered Member ID Case Member ID Guarantor Name 03/10/2023 PAYMENT PLAN Asha Leg 03/24/2023 PAYMENT PLAN Asha Legens 03/22/2023 1 [place] Asha Legens [id number] Asha Legens 03/22/2023 1 [employer] [id number] Asha Gomez Legens [id number] Asha Legens 07/15/2023 PAYMENT PLAN Asha Legens 04/21/2023 1 [place] [id number] Dwayne Guerrero [id number] Asha Leg Notes Date Note Type Note Provider Name and Address Organization Details Recorded Time 02/21/2023 text/html this patient is a 42-year-old female with uterine fibroids, menorrhagia, dysmenorrhea, pelvic pain. She is had surgery for the pelvic pain. She continues to have pain. Her bleeding is very heavy. She is accidents. It is excessive. She gets blood on her bedding and clothing. She is had to leave work. We spent 40 minutes [id number]. More than 50% was counseling we talked about treatment options. We agreed to definitive surgical treatment. We made a decision to perform surgery. Talked about the details of that surgery. We also talked about risk. Talked about technical matters relating to the surgery and recovery. She will return for preoperative visit. We are going to perform [facility] BSO Kris Purvis MD [address], [place], [address], [facility] 02/21/2023 17:34:52 03/10/2023 text/html this patient is a 42-year-old female with uterine fibroids, menorrhagia, dysmenorrhea, pelvic pain. We have agreed to perform total laparoscopic hysterectomy bilateral salpingo-oophorect selam. The patient understands the procedure. The procedure was described to the patient in great detail. the patient also understands the risks. The risks were also explained in detail. She understands that injuries May occur during surgery. She understands these injuries can result in hospitalization, more surgery, and severe illness. She understands there is risk of hemorrhage and infection. Kris Purvis MD [address], [place], [address], [facility] 03/10/2023 18:34:52 03/23/2023 text/html female Patient presents for postop follow-up. She is 1 week postop from a total laparoscopic hysterectomy bilateral salpingectomy+ooph orectomy. She has no complaints. Her incisions are clean dry and intact. She is recovering normally. She will follow-up as needed. Kris Purvis MD [address], [place], [address], [facility] 03/23/2023 17:45:08 OBGyn Episode Ob Episode Information Episode Created Date Number of Fetuses Patient Bloodtype Patient rh Status Prepregnancy Weight lbs Domestic Partner Domestic Partner Phone Father Name Manager Sound Status 02/07/20 20 1 CLOSED Fetus Data First Name Last Name Admitted to NICU Weight (g) Sex Living Outcome Pediatric Complications Fetus ID Race Codes Race Delivery Type [phone] [id number] Vaginal Delivery Luke Calculation Initial Luke Date Initial Exam Date Initial Exam Provider Initial Ultrasound Date Last Menstrual Period Date Ultra Sound Weeks Gestation 0 Eighteen To Twenty Week Luke Update Ultra Sound Date Fundal Height At Umbil Quickening Date Ultra Sound Latest Weeks Gestation Final Luke Confirmed By Final Luke Confirmed Date Final Luke Date Ultra Sound Latest Days Gestation 0 0 Menstrual History Last Menstrual Date Menses Monthly On Bcp Conception Prior Menses Frequency Hcg Plus Date Menarche Onset Age Delivery Information Delivery Date Delivery Type Labor Anesthesia Weeks Gestation Incision Type Labor Labor Length Hrs Delivered By Post Complications Tubal Sterilization Discharge Date Comments 3 Drew Discharge Information Feeding Method Contraceptive Method Maternal HG B and HCT Levels Ob Episode Information Episode Created Date Number of Fetuses Patient Bloodtype Patient rh Status Prepregnancy Weight lbs Domestic Partner Domestic Partner Phone Father Name Manager Sound Status 02/07/20 20 1 CLOSED Fetus Data First Name Last Name Admitted to NICU Weight (g) Sex Living Outcome Pediatric Complications Fetus ID Race Codes Race Delivery Type , Spontane ous [id number] Luke Calculation Initial Luke Date Initial Exam Date Initial Exam Provider Initial Ultrasound Date Last Menstrual Period Date Ultra Sound Weeks Gestation 0 Eighteen To Twenty Week Luke Update Ultra Sound Date Fundal Height At Umbil Quickening Date Ultra Sound Latest Weeks Gestation Final Luke Confirmed By Final Luke Confirmed Date Final Luke Date Ultra Sound Latest Days Gestation 0 0 Menstrual History Last Menstrual Date Menses Monthly On Bcp Conception Prior Menses Frequency Hcg Plus Date Menarche Onset Age Delivery Information Delivery Date Delivery Type Labor Anesthesia Weeks Gestation Incision Type Labor Labor Length Hrs Delivered By Post Complications Tubal Sterilization Discharge Date Comments 7 Discharge Information Feeding Method Contraceptive Method Maternal HG B and HCT Levels Ob Episode Information Episode Created Date Number of Fetuses Patient Bloodtype Patient rh Status Prepregnancy Weight lbs Domestic Partner Domestic Partner Phone Father Name Manager Sound Status 02/07/20 20 1 CLOSED Fetus Data First Name Last Name Admitted to NICU Weight (g) Sex Living Outcome Pediatric Complications Fetus ID Race Codes Race Delivery Type [id number] Vaginal Delivery Luke Calculation Initial Luke Date Initial Exam Date Initial Exam Provider Initial Ultrasound Date Last Menstrual Period Date Ultra Sound Weeks Gestation 0 Eighteen To Twenty Week Luke Update Ultra Sound Date Fundal Height At Umbil Quickening Date Ultra Sound Latest Weeks Gestation Final Luke Confirmed By Final Luke Confirmed Date Final Luke Date Ultra Sound Latest Days Gestation 0 0 Menstrual History Last Menstrual Date Menses Monthly On Bcp Conception Prior Menses Frequency Hcg Plus Date Menarche Onset Age Delivery Information Delivery Date Delivery Type Labor Anesthesia Weeks Gestation Incision Type Labor Labor Length Hrs Delivered By Post Complications Tubal Sterilization Discharge Date Comments 8 Yong Discharge Information Feeding Method Contraceptive Method Maternal HG B and HCT Levels
--- OUTSIDE RECORDS SUMMARY | 2025-05-14 13:58 | XMS_ITS | Data Portability ---
Author Organization [place] [facility], Main Office Address [address] [place] [address] Assessment Encounter Date Assessment Date Assessment LastModified by Organization Details LastModified Time 02/16/2023 02/16/2023 TSH normal with train brakeman this year [email or web address] Not available 02/16/2023 09:50:26 Plan of Treatment Reminders Order Date Submit Date Provider Last Modified By Organization Details Last Modified Time Details Appointments None recorded. Lab CMP, serum or plasma 2024 [facility] (Lab), [address] [place] [address], [address], 5 08:17:48 HbA1c (hemoglobi n A1c), blood 2024 [facility] (Lab), [address] [place] [address], [address], 5 08:17:48 TSH, serum, reflex free T4 2024 [facility] (Lab), [address] [place] [address], [address], 5 08:17:48 CBC w/ auto diff 2024 [facility] (Lab), [address] [place] [address], [address], 5 08:17:47 lipid panel, serum [address] [place] [address] (Lab), [address] [place] [address], [address], 5 08:17:48 estradiol, serum 2024 025 [facility] (Lab), [facility] [address], [place], [address], 5 08:17:48 progestero ne, serum 2024 025 [facility] (Lab), [facility] [address], [place], [address], 5 08:17:48 lh + FSH, serum 2024 025 [facility] (Lab), [facility] [address], [place], [address], 5 08:17:48 CBC w/ auto diff 2022 023 SHARYN Not available 3 23:41:03 BMP, serum or plasma 2022 023 [email or web address] Not available 3 08:17:11 BMP, serum or plasma 2022 023 SHARYN Not available 3 01:43:00 lipid panel, serum 2022 023 SHARYN Not available 3 01:43:00 test, urine [address] [facility] [address], [place], [address], 3 10:18:[address] referral - Please call patient to schedule an appointmen t. Thank you. 2023 024 [email or web address] [facility] Referral Fax Line, [address] [facility], [facility] [address], [place], [address], 4 08:47:24 breast surgery referral 2022 023 devon Dunnaler MD, [address] [facility], [address], [place], [address], 3 07:40:41 Procedures None recorded. Surgeries None recorded. Imaging MAMMO, screening, digital, bilateral - Please call patient to schedule. 2024 [facility], [address], [place], [address], 17:21:15 electrocar diogram [address] [facility] [place], [address] [place] [address] [address], [place], [address], 4 10:05:15 Medication Orders escitalopr am 20 mg tablet 2024 [facility] #72218, [address] [place], [place], [id number], 09:19:24 esomeprazo le magnesium 40 mg capsule,de layed release 2024 [facility] #74359, [address] [place], [place], [id number], 09:19:23 amlodipine 10 mg tablet 2024 [facility] #19176, [address] [place], [place], [id number], 09:19:20 Zepbound 10 mg/0.5 mL subcutaneo us pen injector 2024 [facility] #84377, [address] [place], [place], [id number], 09:19:27 escitalopr am 20 mg tablet 2023 [facility] #99323, [address] [facility], [place], [place], [id number], 4 08:59:36 Zepbound 2.5 mg/0.5 mL subcutaneo us pen injector 2023 024 [facility] #44952, [address] [facility], [place], [place], [id number], 5 08:57:57 amlodipine 10 mg tablet 2023 024 [email or web address] [facility] #15264, [address] [facility], [place], [id number], 4 10:05:12 escitalopr am 10 mg tablet 2023 024 [facility] #94179, [address] [facility], [place], [place], [id number], 5 08:57:49 amlodipine 10 mg tablet 2022 023 [facility] #25426, [address] [facility], [place], [place], [id number], 3 09:45:37 losartan 50 mg-hydroch lorothiazi de 12.5 mg tablet 2022 023 [email or web address] 77 [facility] #11716, [address] [facility], [place], [place], [id number], 4 08:59:16 amlodipine 5 mg tablet [email or web address] [facility], [address] [place], [address], 3 09:49:30 Patient TargetsNo targets recorded. Patient InstructionsNo instructions recorded. Reason for Referral Breast Surgery Referral for Pain of right breast Referring Physician: Kristyn Quiroz, Family Medicine, Encounter Date: 02/16/2023 Imaging Technologist Referral for Ta chycardia Please call patient to schedule an appointment. Thank you. Referring Physician: Ciara Amador, Family Medicine, Encounter Date: 01/04/2024 Results Created Date Observation Date Name Description Value Unit Range Abnormal Flag Note LastModifiedBy Organization Detail LastModifiedTime 02/01/20 23 01/31/2023 pregn nanda test, urine HCG negati ve Not Available [facility] [address], [place], [address], 01/31/2023 09:57:20 02/17/20 23 02/16/2023 XR, chest No observ ation record ed. [address], [place], [address], 09/23/2023 12:37:26 02/17/20 23 02/16/2023 CT, angio gram, chest , w/o contr ast No observ ation record ed. [address], [place], [address], 09/23/2023 12:37:12 04/04/20 23 04/04/2023 MAMMO , diagn ostic , bilat eral No observ ation record ed. [address] [facility], [place], [address], 09/23/2023 12:36:51 01/04/20 24 elect javier diogr am No observ ation record ed. [email or web address] [facility] [address], [place], [address], 01/04/2024 10:05:14 01/30/20 24 01/25/2024 home sleep study No observ ation record ed. [email or web address] [facility] [address], [place], [address], 01/31/2024 08:16:50 12/18/19 25 12/17/2024 imagi ng inter preta tion No observ ation record ed. [place] [id number] [facility] [address], [place], [address], 03/04/2025 09:34:53 12/18/19 25 12/17/2024 imagi ng inter preta tion No observ ation record ed. [address] [facility] [address], [place], [address], 03/04/2025 09:35:04 Result Notes None recorded. Problems Name Problem SNOMED Code Status Onset Date Resolution Date Notes Provider Name and Address Organization Details Recorded Time Acute bronchiti s 40025134 Active Not Available [facility] 3 09:13:28 Abdominal pain 27508925 Active Not Available [facility] 3 09:13:28 Tingling of skin 759487968 Active Not Available [facility] 3 09:13:28 Low back pain 305267701 Active Not Available [facility] 3 09:13:29 Spasm 09904938 Active Not Available [facility] 3 09:13:29 White blood cell disorder 06518980 Completed Not Available [facility] 3 09:13:29 Tinea pedis 8338869 Active Not Available [facility] 3 09:13:29 Female urinary stress incontine nce 22002156 Active Not Available [facility] 3 09:13:29 Increased liver function 35197338 Completed Not Available [facility] 3 09:13:29 Meningiti s 9374316 Active 2008 Not Available [facility] 3 09:13:29 Pain of right breast 2456716065 Active 2022 Kristyn Quiroz MD [address], [place] [address], [place], [address] , [place] - [facility] 3 08:03:20 Essential hypertens ion 37750910 Active 2022 LIZ Maurer [address], [place], [address] , [employer] [facility] 3 09:58:13 Pain of left breast 5470051620 Active 2022 Kristyn Quiroz MD [address], [place], [address] , [facility] 3 09:37:15 Chest pain 57611649 Active 2022 Kristyn Quiroz MD [address], [place], [address] , [employer] [facility] [employer] [facility] 3 17:48:57 Influenza A virus present 97471094359 8 Active 2023 LIZ Maurer [address], [place], [address] , [employer] - [facility] [employer] 4 20:31:35 Cough 81670208 Active 2023 Kristyn Quiroz MD [address], [place], [address] , [employer] [facility] [employer] [facility] [employer] 4 13:37:24 Tachycard ia 5844767 Active 2023 LIZ Damon [address], [place], [address] , [employer] [facility] [employer] [facility] 4 09:16:56 Mixed anxiety and depressiv e disorder 145323916 Active 2023 LIZ Damon [address], [place], [address] , [employer] [facility] [employer] [facility] 4 10:05:49 Headache 32488468 Active 2023 LIZ Damon [address], [place], [address] , [facility] - [facility] [employer] [facility] 4 10:07:54 COVID-19 031123128 Active 2023 LIZ Damon [address], [place], [address] , [employer] 4 14:24:02 Body mass index 30+ - obesity 760180888 Active 2024 LIZ Damon [address], [facility] [address], [place], [address] , [employer] 5 10:12:00 Gastroeso phageal reflux disease without esophagit is 839135258 Active 2024 LIZ Damon [address], [facility] [address], [place], [address] , [employer] 5 09:16:38 Problem Notes None recorded. Procedures Surgical History Date Name Laterality Status Provider Name and Address Organization Details Recorded Time 02/14/20 hysterectomy completed Emilio RoxannPILLO [employer] [facility] 03/13/2025 09:02:06 laparoscopic cholecystectomy completed Not Available [facility] 07/14/2022 09:11:23 ligation of bilateral fallopian tubes completed Not Available [facility] 07/14/2022 09:11:23 exploration of pelvis by laparotomy completed Not Available [facility] 07/14/2022 09:11:23 Imaging Results None recorded. [...] and Address Organization Details Last Updated DateTime 4 162.56 cm 39.3 kg/m2 954868. 65 g 97.6 [degF] 113 /min 97 % 148/80 mm[Hg] Poonam Fuentes RN [facility] [employer] [facility] 4 08:58:30 Date Recorded Body height Body mass index (BMI) Body weight Body temperature Heart rate Oxygen saturation Systolic And Diastolic Provider Name and Address Organization Details Last Updated DateTime 3 162.56 cm 38.6 kg/m2 203362. 28 g 98.6 [degF] 87 /min 98 % 147/89 mm[Hg] Cheri Palm MA [facility] 3 09:50:17 Date Recorded Body height Body mass index (BMI) Body weight Body temperature Oxygen saturation Heart rate Systolic And Diastolic Provider Name and Address Organization Details Last Updated DateTime 4 162.56 cm 39.7 kg/m2 527207. 84 g 96.5 [degF] 99 % 101 /min 140/86 mm[Hg] Poonam Fuentes RN [facility] [employer] [facility] 4 08:51:59 Date Recorded Body height Body mass index (BMI) Body weight Body temperature Heart rate Oxygen saturation Systolic And Diastolic Provider Name and Address Organization Details Last Updated DateTime 3 162.56 cm 38.8 kg/m2 215765. 88 g 97.2 [degF] 106 /min 98 % 158/94 mm[Hg] Poonam Fuentes RN [facility] [employer] [facility] 3 09:29:09 Date Recorded Body height Body mass index (BMI) Body weight Body temperature Heart rate Oxygen saturation Systolic And Diastolic Provider Name and Address Organization Details Last Updated DateTime 5 162.56 cm 36.4 kg/m2 85184.5 8 g 97.3 [degF] 88 /min 97 % 120/72 mm[Hg] PILLO Strauss [facility] [employer] [facility] 5 09:06:57 Social History Question Answer Notes LastModified by Organizat ion Details LastModified Time Tobacco Smoking Status Current Every Day Smoker Emilio Hackett, PILLO white, [place] - [facility] 03/13/2025 08:59:46 Do You Have An Advance [...] Do You Have A Medical Power Of Counter Help? No Information not available 03/13/2025 What Was [...] anxious, or unable to sleep at night)? [id number] Information not available 03/13/2025 Family History Relationship Description Onset Age of this Age Resolved Age Notes LastModified by Organization Details LastModified Time Maternal Aunt Malignant neoplasm of breast MIGRATION.934 [id number] Not available 07/14/2022 09:11:23 Father Primary malignant neoplasm of urethra MIGRATION.816 [id number] Not available 07/14/2022 09:11:23 Sister Malignant neoplasm of cervix uteri small blue cell MIGRATION.475 [id number] Not available 07/14/2022 09:11:23 Maternal Uncle Malignant neoplasm of colon MIGRATION.269 [id number] Not available 07/14/2022 09:11:23 Medical History No [...] Emilio Shell, RMA null, [place] [facility] 03/13/2025 09:46:31 OPV, trivalent 3 completed Not Available [facility] 03/13/2025 08:52:15 DTP 3 completed Not Available [facility] 03/13/2025 08:52:15 DTP 3 completed Not Available [facility] 03/13/2025 08:52:15 OPV, trivalent 3 completed Not Available [facility] 03/13/2025 08:52:15 OPV, trivalent 4 completed Not Available [facility] 03/13/2025 08:52:15 DTP 4 completed Not Available [facility] 03/13/2025 08:52:15 MMR 5 completed Not Available [facility] 03/13/2025 08:52:15 DTP 5 completed Not Available [facility] 03/13/2025 08:52:15 OPV, trivalent 5 completed Not Available [facility] 03/13/2025 08:52:15 DTP 8 completed Not Available [facility] 03/13/2025 08:52:15 OPV, trivalent 9 completed Not Available [facility] 03/13/2025 08:52:15 MMR 3 completed Not Available [facility] 03/13/2025 08:52:15 Td (adult), 2 Lf tetanus toxoid, preservative free, adsorbed 8 completed Not Available [facility] 03/13/2025 08:52:15 Influenza, MDCK, trivalent, PF 4 completed Not Available [facility] 03/13/2025 08:52:15 Influenza, split virus, quadrivalent, PF 3 completed Poonam Fuentes RN null, [place] [facility] 02/16/2023 10:21:39 Influenza, split virus, quadrivalent, PF 1 completed Not Available [facility] 07/14/2022 09:14:55 Influenza, split virus, quadrivalent, preservative 6 completed Not Available [facility] 07/14/2022 09:14:55 Influenza, split virus, quadrivalent, PF 5 completed Not Available [facility] 07/14/2022 09:14:55 Tdap 4 completed Not Available [facility] 07/14/2022 09:14:55 Past Encounters Encounter ID Performer Location Encounter Start Date Encounter Closed Date Diagnosis/Indication Diagnosis SNOMED-CT Code Diagnosis ICD10 Code Diagnosis IMO Codes Diagnosis Note [id number] Kristyn Quiroz MD [facility] [place] [address] [place] [address] 01/21/2021 00:00:00 01/21/2021 10:37:50 [id number] Kristyn Quiroz MD [facility] [place] [address] [place] [address] 02/25/2021 00:00:00 03/06/2021 10:16:05 [id number] MARCUS Moore [facility] [place] [address] [place] [address] 03/25/2021 00:00:00 03/25/2021 13:33:03 [id number] Kristyn Quiroz MD [facility] [place] [address] [place] [address] 04/13/2021 00:00:00 04/13/2021 22:03:03 [id number] Kristyn Quiroz MD [facility] [place] [address] [place] [address] 05/19/2021 00:00:00 05/19/2021 08:21:25 [id number] Kristyn Quiroz MD [facility] [place] [address] [facility] [address] [place] [address] 01/31/2023 09:16:52 01/31/2023 10:13:16 Urine test positive 916220405 Z32.01 Hx of tubal ligation 15 years agoNo period in the last 2 monthsWill rule out pregnacy Essential hypertension 63535036 I10 Has noted high reading at home per her friend (167/93), 2 readings in Jorge A noted to seek UCPt has noted heart racing/pal pitations and headaches every other day for a long time; no cp, sobPt recently started on phentermin e, will discuss with Dr. Hazel not taking the phentermin e for the last 2 day, but still having the symptomsNo roberta only drinking water at night-enco uraged to increase water intake through the dayWill trial norvascF/u in 1 month [id number] Kristyn Quiroz MD [facility] [address] [place] [address] 02/16/2023 09:24:19 02/16/2023 13:10:49 Adult health examination 916650420 Z00.00 Z13.1 Z13.220 had repeat pap with train brakeman 202mammogr am done olon cancer screen age 47check fasting labsflu vaccine today Pain of right breast 763 9382478 N64.4 had normal diagnostic mammogram and US 08/05 and 09/05, but persistent paincut back on caffeine and nicotine Essential hypertension 08688003 I10 not in good controlcon tinue amlodipine 10 mg dailyadd losartan/h ctz 50/12.5 mg dailyf/u in 4 weeks Administra tion of influenza vaccine 73467836 Z23 [id number] LIZ Damon [facility] [address] [facility] [address] [place] [address] 01/04/2024 08:51:25 01/04/2024 09:40:29 Essential hypertension 10239534 I10 BP 148/80.Pat ient educated on medication compliance and monitoring BP at home. Tachycardia 0564314 R00. 0 Patient educated on monitoring heart rate at home. Patient to call the office on Tuesday with heart rate readings.P atient verbalized understand ing that if heart rate remains consistent ly elevated over 120 she needs to let us know.Patie nt verbalized understand ing that if her heart rate is over 150 she needs to go to the ER. Patient also understand s that if she starts to have any chest pain she needs to go to the ER for further evaluation . Dietary ma chiquis surveillance 998580363 Z71.3 Weight: 229lbsBMI: 39.3 Mixed anxi ety and depressive disorder 875536537 F41.8 ANT-7 (09/03).Adi l start patient on medication as listed below, will follow up in 6-8 weeks, sooner if needed.Den ies SI/HI. Headache 45577347 R51.9 Will continue to treat with OTC medication s. If headache becomes severe or she has dizziness and/or visual changes she will present to the ER. [id number] LIZ Damon [facility] [address] [place] [address] 02/14/2024 08:47:34 02/14/2024 09:56:29 Mixed anxiety and depressive disorder 332631517 F41.8 ANT-7 (09/03).Adi l increase to 20mg daily. Patient will follow up in 6 to 8 weeks, sooner if needed.Den ies SI/HI. [id number] LIZ Damon [facility] [address] [place] [address] 03/13/2025 08:50:24 03/13/2025 09:36:09 Adult health examination 031470093 Z00.00 Z13.29 Z13.1 172129 Discussed medication compliance and routine follow up.Discuss ed healthy diet and routine exercise.Dimitry devineiewed vaccine records and made recommenda tions as needed.Enc ouraged annual eye and dental exams, as well as twice yearly dental cleanings. Will check screening labs as listed below. Mixed anxi ety and depressive disorder 853413356 F41.8 ANT-7 (07/06).Tara celaya is doing well on current medication and has no concerns at this time. Essential hypertension 19744704 I10 120/72Will refill meds and check labs as listed below. Body mass index 30+ - obesity 693713465 E66.9 Z78.9 Weight: 212 poundsBMI: 36.4 Gastroesop hageal reflux disease without esophagitis 888475218 K21.9 656053 Will start medication as listed below. Patient has been taking Nexium 20mg OTC and it has not helped with symptoms. Influenza vaccination given 6418373494 9109 Z23 23438855 Screening mammography 24 381731 Z12.31 07128744 History of hysterectomy 043884511 Z90.710 290680 Health Concerns Section Related Observation LastModified by Organization Detai ls LastModified Time None Recorded Concern Status LastModified by Organization Details LastModified Time None Recorded Advance Directives Directive N: Payers Insurance Date Sequence Insurance Name Policy Number Policy Case Covered Member ID Case Member ID Guarantor Name 10/16/2024 1 [place] [id number] Dwayne Guerrero [id number] 02 Asha Bareiter 03/12/2025 1 [employer] [id number] Asha Gomez Legens [id number] 2 [id number] 02 Asha Bareiter 03/12/2025 1 [employer] [id number] Asha S Legens [id number] 2 Asha Bareiter Notes Date Note Type Note Provider Name and Address Organization Details Recorded Time 01/31/2023 text/html Pt is here for htn. She is late on her period LIZ Maurer [address] [facility], [facility] [address], [place], [address], [employer] 01/31/2023 12:05:39 02/16/2023 text/html ROS as noted in the HPI Here for wellness exam she is taking amlodipine 10mg daily and tolerating it ok, no home blood pressures for reviewshe does feel run down, sometimes racing heart. train brakeman just did tsh which was normal. she has persistent right breast tenderness Kristyn Quiroz MD [address] [facility], [place], [address], [employer] 02/16/2023 09:53:28 01/04/2024 text/html ROS as noted in the HPI Patient is a 43 year old female that presents to the office for med follow up and to discuss weight loss medications. Patient reports she has had an increase in headaches over the last couple of months. Patient reports she typically takes Tylenol and Excedrin which is usually helpful. Patient reports headaches are primarily posterior, do not radiate and are not worsened by light or sound. Patient reports noticing headaches are worse when she stops taking her Amlodipine. Patient reports she only takes it when she feels like her BP is high or when she checks it and it is high. Patient reports she consistently started taking it again on Tuesday. Patient denies visual changes and dizziness. Patient also reports her heart is racing. Patient reports this has been ongoing for about a year but she believes it is getting worse. Patient denies palpitations, patient states she knows it is high because she can feel it when she touches her cartoid artery. Patient reports last week her nurse friend told her to go to the ER because her resting heart rate was 150, however she did not go to the ER. Patient believes a lot of her symptoms are related to stress and weight. Patient reports increased stress from her son recently getting his license. Patient reports difficulty losing weight due to not being able to go to the gym because of headaches and tachycardia. Patient reports she is also working on diet. Patient reports she took Phentermine several years ago from 9737-6368 and had a lot of success but when Covid hit she fell off track. Patient also reports she had a hysterectomy in February 2023 and did not tolerate the hormone replacement medication they started her on so she stopped it. Patient did follow back up with OB. Patient denies chest pain and shortness of breath, nausea vomiting and diarrhea. TRINO Damon-Isaias [address] [facility], [facility] [address], [place], [address], [facility] 01/04/2024 10:08:47 02/14/2024 text/html ROS as noted in the HPI Patient is a 43 year old female that presents to the office for medication follow up. Patient reports her anxiety is more controlled but thinks she would benefit from a dose increase as she still has some days that are hard for her. Patient denies any side effects from the medication. Patient reports she has not started the zepbound due to insurance denial. Patient reports she received another form from her insurance that can be filled out for approval. Patient denies chest pain and shortness of breath, nausea vomiting and diarrhea. LIZ Damon [address], [facility] [address], [place], [address], [employer] 02/14/2024 09:09:26 03/13/2025 text/html Patient is a 44 year old female that presents to the office for annual wellness. labs- orderedWWE- hysterectomyMammog evan- orderedColonoscopy - age 47Flu- orderedCovid- awareTdap- UTD LIZ Damon [address], [facility] [address], [place], [id number], [employer] 03/13/2025 09:27:18 OBGyn Episode No OBEpisode recorded.
[2025-05-14 14:11] LABS: EDCOVIDSCREEN Negative (Negative); EDINFLUASCREEN Negative (Negative); EDINFLUBSCREEN Negative (Negative)
--- NOTE | 2025-05-14 14:21 | ED.GENADULT ---
HPI - General Adult General Chief complaint: Upper Respiratory Infection Stated complaint: flu/ear Source: patient Mode of arrival: ambulatory Limitations: no limitations History of Present Illness HPI narrative: Patient presents for evaluation of sick symptoms since last week. She reports fever, cough, sinus congestion, nasal drainage, diarrhea and body aches. Most symptoms have improved although now she has right sided ear pain. She has been taking mucinex and tessalon for her symptoms. She spent time with family over the holidays and believes she may have gotten sick from a family member. Related Data Home Medications ?Medication ?Instructions ?Recorded ?Confirmed ?Last Taken ?Type amlodipine 10 mg tablet 10 mg PO QNOON 03/09/23 09/21/23 Unknown History escitalopram oxalate 20 mg tablet mg 05/14/25 Unknown History esomeprazole magnesium 40 mg mg 05/14/25 Unknown History capsule,delayed release tirzepatide (weight loss) 10 mg subcut 05/14/25 Unknown History mg/0.5 mL subcutaneous pen injector ([employer]) Allergies Allergy/AdvReac Type Severity Reaction Status Date / Time hydrochlorothiazide Allergy Intermediate Chest Pain Verified 05/14/25 13:42 losartan Allergy Intermediate Chest Pain Verified 05/14/25 13:42 codeine AdvReac Intermediate Vomiting Verified 05/14/25 13:42 hydrocodone AdvReac Intermediate Vomiting Verified 05/14/25 13:42 tramadol AdvReac Intermediate Vomiting Verified 05/14/25 13:42 Review of Systems Review of Systems: CONSTITUTIONAL: denies chills, or sweats. Reports recent fever, none currently EYES: Denies visual changes, redness, or discharge. ENT: reports right-sided ear pain. Reports recent sinus congestion, since improved CARDIOVASCULAR: Denies chest pain, palpitations, or edema. RESPIRATORY: reports recent cough, none currently. GASTROINTESTINAL: reports recent diarrhea, none currently. Denies abdominal pain, nausea, vomiting GENITOURINARY: Denies dysuria or hematuria. SKIN: Denies rash or itching. MUSCULOSKELETAL: reports recent body aches, none currently NEUROLOGIC: Denies headache, numbness, dizziness, or weakness. PSYCHIATRIC: Denies anxiety or depression. [facility] Past Medical History Medical History Fatty liver 2007 when h/o of meningitis Surgical History Surgical History No pertinent past surgical history Family History Family History Mother Family history non-contributory Social History Social History Smoking packs per day: 1 Smoking cigarettes per day: 20.0 Years smoked: 25 Smoking pack-years: 25.00 Smoking status: Current every day smoker Tobacco type: cigarettes Alcohol intake: current Drinks per week: 2 Substance use: current Substance use type: marijuana Living arrangements: with family Gender identity (if verbalized by the patient): Female Sexual Orientation (if Verbalized by the Patient): Straight or Heterosexual Spiritual care concerns: No Exam Narrative: GENERAL: Well-appearing, well-nourished, and in no acute distress. HEAD: Normocephalic, atraumatic. EYES: PERRLA and EOMI. ENT: Nares clear, no rhinorrhea or epistaxis. Mucous membranes moist. Oropharynx without tonsillar hypertrophy exudate or other lesions. Right tympanic membrane is erythematous and bulging NECK: Supple. No adenopathy or masses. No carotid bruits or JVD CHEST: Clear to auscultation. No respiratory distress. No wheezes rales or rhonchi HEART: Regular rate and rhythm. No murmur heard. Normal peripheral pulses. ABDOMEN: Soft, nontender, nondistended, normal active bowel sounds. EXTREMITIES: Normal range of motion. No edema. SKIN: Warm, dry, no rash. NEURO: No focal deficits. Alert and oriented x3. PSYCH: Normal mood and affect. Course Course Emergency Course: this is a 44-year-old female who presented for evaluation of sick symptoms. She has evidence of otitis media on exam. Will treat with Augmentin. Tessalon has been helping with her cough. Will provide her with a prescription for additional doses. Follow-up with primary provider. Go to the ER for worsening symptoms. Patient in agreement with plan of care. Level of Care: Express Care Visit Vital Signs Vital signs: Vital Signs Temperature 36.1 C L 05/14/25 13:53 Pulse Rate 100 05/14/25 13:53 Respiratory Rate 18 05/14/25 13:53 Blood Pressure 110/78 05/14/25 13:53 Pulse Oximetry 99 05/14/25 13:53 Oxygen Delivery Room Air 05/14/25 13:53 Temperature 36.1 C L 05/14/25 13:53 Pulse Rate 100 05/14/25 13:53 Respiratory Rate 18 05/14/25 13:53 Blood Pressure 110/78 05/14/25 13:53 Pulse Oximetry 99 05/14/25 13:53 Oxygen Delivery Room Air 05/14/25 13:53 MDM Differential Diagnosis Differential Diagnosis: covid vs flu vs strep vs otitis media vs other Lab Data Labs: Lab Results 05/14/25 Range/Units 14:09 POC Influenza A Ag Negative (Negative) POC Influenza B Ag Negative (Negative) POC SARS CoV-2 Ag Negative (Negative) Discharge Plan Discharge Clinical Impression: Otitis media Patient Disposition: Home Condition: Stable Instructions: Antibiotic Form, Ear Infection (ED) Patient Language: [place] Prescriptions: New amoxicillin-pot clavulanate 875-125 mg tablet 1 tablet PO Q12H Qty: 20 0RF benzonatate 200 mg capsule 200 mg PO TID PRN (Reason: cough) Qty: 30 0RF No Action benzonatate 100 mg capsule 100 mg PO TID PRN (Reason: cough) Qty: 20 0RF esomeprazole magnesium 40 mg capsule,delayed release(DR/EC) escitalopram oxalate 20 mg tablet Zepbound 10 mg/0.5 mL pen injector SUBCUT amlodipine 10 mg Tablet 10 mg PO QNOON Follow-up/Referrals: Perry,Ciara Collins NP [Primary Care Provider, Unknown] Time of Disposition: 14:12
== END 2025-05-14 14:13 | disposition home or self-care (01) ==
PROVIDERS: Emergency Provider Nurse Practitioner; PCP Nurse Practitioner Family
DX: H66.91 Otitis media, unspecified, right ear (principal); Z20.822 Contact with and (suspected) exposure to COVID-19; K76.0 Fatty (change of) liver, not elsewhere classified
CPT/HCPCS: 87426; 87804; 99213; G0463